=== PATIENT | female | born 1995 | race Caucasian/White ===

== ENCOUNTER → 2020-12-19 | Outpatient (REF) | payer OTHER ==
[2020-12-19 17:15] LABS: HEMATOCRIT 41.3 % (36.0-47.0); HEMOGLOBIN 13.5 g/dl (12.0-15.5); MEAN CORPUSCULAR HEMOGLOBIN 29.6 pg (27.0-33.0); MEAN CORPUSCULAR HGB CONC 32.7 g/dl (32.0-36.5); MEAN CORPUSCULAR VOLUME 90.6 fl (80.0-96.0); PLATELET COUNT, AUTOMATED 189 10^3/uL (150-450); RED BLOOD COUNT 4.56 10^6/uL (4.00-5.40); WHITE BLOOD COUNT 8.4 10^3/uL (4.0-10.0)
[2020-12-19 17:34] LABS: HCG, SERUM QUANTITATIVE 35647 MIU/ML
[2020-12-19 17:58] LABS: HEPATITIS C VIRUS ABY INDEX < 0.0 INDEX (<0.8)
[2020-12-19 17:59] LABS: HIV 1&2 SCREEN CENTAUR NEGATIVE (NEGATIVE)
== END ==
LOC: M LAB REF 16:33
PROVIDERS: ATTEND Obstetrics & Gynecology
DX: Z32.01 Encounter for pregnancy test, result positive (principal); O36.80X0 Pregnancy with inconclusive fetal viability, not applicable or unspecified

== ENCOUNTER → 2021-01-02 | Outpatient (CLI) | payer OTHER ==
--- NOTE | 2021-01-02 08:06 | REP ---
INDICATION: DATING AND VIABILITY COMPARISON: None. TECHNIQUE: Transabdominal 1st trimester obstetrical ultrasound with color Doppler evaluation. FINDINGS: Single live early intrauterine is appreciated. pole identified. [place]uffs-rump length of 4.5 cm corresponds to 11 weeks 2 days gestational age with estimated date of delivery 07/22/2021. heart rate equals 170 beats per minute. Placenta identified posteriorly with placenta previa likely to resolve as progresses. IMPRESSION: Single live early intrauterine at 11 weeks 2 days gestational age. Complete anatomical assessment should be performed and 19-20 weeks. <Electronically signed by Scooter Josue > 01/02/21 0802
== END ==
LOC: M WHC 06:56 → EDUNIT# 07:00
PROVIDERS: ATTEND Obstetrics & Gynecology
DX: Z36.87 Encounter for antenatal screening for uncertain dates (principal); O36.80X0 Pregnancy with inconclusive fetal viability, not applicable or unspecified; Z3A.11 11 weeks gestation of pregnancy

== ENCOUNTER → 2021-03-02 | Outpatient (CLI) | payer OTHER ==
--- NOTE | 2021-03-02 09:21 | REP ---
INDICATION: ANATOMY COMPARISON: 01/02/2021 TECHNIQUE: Transabdominal obstetrical ultrasound with color Doppler evaluation. FINDINGS: Examination demonstrates a single live intrauterine in cephalic presentation. motion is identified by technologist. Placenta is noted anterior/fundal and grade 0 without evidence for placenta previa or abruption. Amniotic fluid volume is normal. Cervix measures 3.9 cm in length and appears closed.. Selected gestational age: 19 weeks 6 days with TIKI 07/21/2021. Gestational age by current measurements 19 weeks 3 days with TIKI 07/24/2021. FHR equals 156 beats per minute. Estimated weight 299 grams (30thpercentile). Anatomical assessment demonstrates normal structures including cranium, choroid plexus, cavum, cerebellum/posterior fossa, facial features, lungs, four-chamber heart/ventricular outflow tracts, diaphragm, stomach, cord insertion/three-vessel cord, kidneys/bladder, spine, and extremities. IMPRESSION: Single live intrauterine in cephalic presentation demonstrating appropriate estimated weight. Anatomical assessment is complete and normal. <Electronically signed by Scooter Josue > 03/02/21 [id number]
== END ==
LOC: M WHC 08:04
PROVIDERS: ATTEND Advanced Practice Midwife
DX: O34.211 Maternal care for low transverse scar from previous cesarean delivery (principal); Z3A.19 19 weeks gestation of pregnancy

== ENCOUNTER → 2021-03-14 | Outpatient (REF) | payer OTHER ==
[2021-03-14 14:49] LABS: APPEARANCE, URINE CLEAR (CLEAR); BACTERIA, URINE AUTO 1+ (NEGATIVE); BILIRUBIN, URINE AUTO NEGATIVE (NEGATIVE); BLOOD, URINE BLOOD NEGATIVE (NEGATIVE); COLOR, URINE STRAW (YELLOW); GLUCOSE, URINE (UA) AUTO NEGATIVE (NEGATIVE); KETONE, URINE AUTO NEGATIVE (NEGATIVE); LEUKOCYTE ESTERASE, URINE AUTO NEGATIVE (NEGATIVE); NITRITE, URINE AUTO NEGATIVE (NEGATIVE); PROTEIN, URINE AUTO NEGATIVE (NEGATIVE); RBC, URINE AUTO 0 /HPF (0-3); SPECIFIC GRAVITY URINE AUTO 1.005 (1.002-1.035); SQUAMOUS EPITHELIAL CELL UR AU 0 /HPF (0-6); UROBILINOGEN, URINE AUTO 0.2 mg/dL (0.0-2.0); WBC, URINE AUTO 0 /HPF (0-3)
== END ==
LOC: M SFHCWAGY 13:24
PROVIDERS: ATTEND Advanced Practice Midwife
DX: O26.899 Other specified pregnancy related conditions, unspecified trimester (principal); R10.9 Unspecified abdominal pain
CPT/HCPCS: 81001; 81002; 87086; G0463

== ENCOUNTER → 2021-04-05 | Outpatient (CLI) | payer OTHER ==
[2021-04-05 16:40] LABS: HEMOGLOBIN 11.9 g/dl (12.0-15.5); MEAN CORPUSCULAR HEMOGLOBIN 30.5 pg (27.0-33.0); MEAN CORPUSCULAR HGB CONC 33.1 g/dl (32.0-36.5); MEAN CORPUSCULAR VOLUME 92.3 fl (80.0-96.0); PLATELET COUNT, AUTOMATED 171 10^3/uL (150-450); WHITE BLOOD COUNT 10.3 10^3/uL (4.0-10.0)
== END ==
LOC: M PLALAB 14:28
PROVIDERS: ATTEND Obstetrics & Gynecology
DX: O34.211 Maternal care for low transverse scar from previous cesarean delivery (principal); Z3A.00 Weeks of gestation of pregnancy not specified
CPT/HCPCS: 36415; 82950; 85027; 86850; 86900; 86901; 87210; G0463

== ENCOUNTER → 2021-05-09 | Outpatient (REF) | payer OTHER | LOC: M SFHCWAGY 13:07 | PROVIDERS: ATTEND Advanced Practice Midwife | DX: O34.211 Maternal care for low transverse scar from previous cesarean delivery (principal) ==

== ENCOUNTER → 2021-06-22 | Outpatient (REF) | payer OTHER ==
[~2021-06-22] MED LIST: TUMS500C PO
== END ==
LOC: M SFHCWAGY 16:58
PROVIDERS: ATTEND Advanced Practice Midwife
DX: Z36.85 Encounter for antenatal screening for Streptococcus B (principal)
CPT/HCPCS: 87081; G0463

== ENCOUNTER 2021-06-25 08:13 | Outpatient (CLI) | payer OTHER ==
[~2021-06-25] VITALS: Ht 157.5 cm; Wt 92.6 kg
[2021-06-25] MEDS ORDERED: TUMS500C PO (08:31)
[2021-06-25 08:35] VITALS: BP 131/68
[2021-06-25] MEDS ORDERED: HOME MED LIST COMPLETE! XX SCH (08:35)
[2021-06-25 09:19] VITALS: BP 134/66
--- NOTE | 2021-06-25 09:37 | IPNPDOC ---
Text Note Date of Service The patient was seen on 06/25/21. S: Lisha is a at 36.2 weeks gestation with an TIKI of 07/21/21 who presented to triage with complaints of decreased movement and abdominal pain throughout the night. complicated by history of section. Patient states her abdomen felt rock hard and pain was worsened when getting out of bed or standing from a sitting position. She denies any current contractions, loss of fluid or bright red vaginal bleeding. Patient does confirm feeling movement during exam/ultrasound. O: Vital signs: see below. Bedside ultrasound with IGNACIO of 16.86cm with breech presentation. Fetus active and moving during ultrasound. FHR 160's with moderate variability. Onycha with occasional (only 2 noted) contractions. Exam: General-alert and oriented x 2, NAD Resp-breathing comfortably on room air, no accessory muscles used Abdomen-soft, gravid uterus, leopolds confirms breech presentation A: Decreased Movement IUP at 36.2 weeks gestation Reactive NST Breech Presentation P: Discharge to home. Signs of labor discussed Reviewed access to care, kick counts, and danger signs to report. F/U at next appointment later this week, will reconfirm position VS,Fishbone, I+O VS, Fishbone, I+O Vital Signs Date Time Temp Pulse Resp B/P (MAP) Pulse Ox O2 Delivery O2 Flow Rate FiO2 06/25/21 08:35 98.4 88 18 131/68 (89) ELIZABETH GILL CNM Jun 25, 2021 09:37
== END 2021-06-25 09:36 | disposition home or self-care (01) ==
LOC: M LDO 08:13
PROVIDERS: ATTEND Advanced Practice Midwife
DX: O36.8130 Decreased fetal movements, third trimester, not applicable or unspecified (principal); Z3A.36 36 weeks gestation of pregnancy; O26.893 Other specified pregnancy related conditions, third trimester; R10.2 Pelvic and perineal pain; O34.219 Maternal care for unspecified type scar from previous cesarean delivery; Z88.0 Allergy status to penicillin
CPT/HCPCS: 59025; G0378; G0463

== ENCOUNTER → 2021-07-18 | Outpatient (CLI) | payer OTHER ==
[~2021-07-18] MED LIST changes: +IBUP-1022 PO; +OMEP1CAP73 PO; +OXYC-517 PO
== END ==
LOC: M LABSMTC 10:01
PROVIDERS: ATTEND Anesthesiology
DX: Z01.812 Encounter for preprocedural laboratory examination (principal); Z20.822 Contact with and (suspected) exposure to COVID-19
CPT/HCPCS: G0463; U0003

== ENCOUNTER 2021-07-22 17:50 | Inpatient (IN) | payer OTHER ==
[~2021-07-22] VITALS: Ht 157.5 cm; Wt 96.0 kg
[~2021-07-22 17:50] MED LIST changes: -IBUP-1022 PO; -OXYC-517 PO
[2021-07-22 18:07] VITALS: BP 132/92
[2021-07-22] MEDS ORDERED: HOME MED LIST COMPLETE! XX SCH (18:15)
--- OUTSIDE RECORDS SUMMARY | 2021-07-22 18:21 | CCD ---
Author Author [facility] Address Unknown Phone Unavailable Care Team Providers Care Data Transcriber Name Role Phone Martina, Rios PA Unavailable Unavailable Martina, Rios PA Unavailable Unavailable Martina, Rios PA Unavailable Unavailable Martina, Rios PA Unavailable Unavailable Martina, Rios PA Unavailable Unavailable Martina, Rios PA Unavailable Unavailable Martina, Rios PA Unavailable Unavailable Martina, Rios PA Unavailable Unavailable Martina, Rios PA Unavailable Unavailable Martina, Rios PA Unavailable Unavailable Maritna, Rios PA Unavailable Unavailable Martina, Rios PA Unavailable Unavailable Martina, Rios PA Unavailable Unavailable Martina, Rios PA Unavailable Unavailable Martina, Rios PA Unavailable Unavailable Martina, Rios PA Unavailable Unavailable Martina, Rios PA Unavailable Unavailable Martina, Rios PA Unavailable Unavailable Martina, Rios PA Unavailable Unavailable Martina, Rios PA Unavailable Unavailable Martina, Rios PA Unavailable Unavailable Martina, Rios PA Unavailable Unavailable Martina, Rios PA Unavailable Unavailable Martina, Rios PA Unavailable Unavailable Martina, Rios PA Unavailable Unavailable Martina, Rios PA Unavailable Unavailable Martina, Rios PA Unavailable Unavailable Martina, Rios PA Unavailable Unavailable Martina, Rios PA Unavailable Unavailable Martina, Rios PA Unavailable Unavailable Martina, Rios PA Unavailable Unavailable Martina, Rios PA Unavailable Unavailable Martina, Rios PA Unavailable Unavailable Martina, Rios PA Unavailable Unavailable Martina, Rios PA Unavailable Unavailable Martina, Rios PA Unavailable Unavailable Martina, Rios PA Unavailable Unavailable Martina, Rios PA Unavailable Unavailable Martina, Rios PA Unavailable Unavailable Martina, Rios PA Unavailable Unavailable Martina, Rios PA Unavailable Unavailable Martina, Rios PA Unavailable Unavailable Martina, Rios PA Unavailable Unavailable Martina, Rios PA Unavailable Unavailable Martina, Rios PA Unavailable Unavailable Martina, Rios PA Unavailable Unavailable Martina, Rios PA Unavailable Unavailable Martina, Rios PA Unavailable Unavailable Martina, Rios PA Unavailable Unavailable Martina, Rios PA Unavailable Unavailable Martina, Rios PA Unavailable Unavailable Martina, Rios PA Unavailable Unavailable Martina, Rios PA Unavailable Unavailable Martina, Rios PA Unavailable Unavailable ANTECOL, Davy FONSECA MD Unavailable Unavailable ANTECOL, Davy FONSECA MD Unavailable Unavailable ANTECOL, Davy FONSECA MD Unavailable Unavailable ANTECOL, Davy FONSECA MD Unavailable Unavailable ANTECOL, Davy FONSECA MD Unavailable Unavailable ANTECOL, Davy FONSECA MD Unavailable Unavailable ANTECOL, Davy FONSECA MD Unavailable Unavailable ANTECOL, Davy FONSECA MD Unavailable Unavailable ANTECOL, Davy FONSECA MD Unavailable Unavailable ANTECOL, Davy FONSECA MD Unavailable Unavailable ANTECOL, Davy FONSECA MD Unavailable Unavailable ANTECOL, Davy FONSECA MD Unavailable Unavailable ANTECOL, Davy FONSECA MD Unavailable Unavailable ANTECOL, Davy FONSECA MD Unavailable Unavailable ANTECOL, Davy FONSECA MD Unavailable Unavailable ANTECOL, Davy FONSECA MD Unavailable Unavailable ANTECOL, Davy FONSECA MD Unavailable Unavailable ANTECOL, Davy FONSECA MD Unavailable Unavailable ANTECOL, Davy FONSECA MD Unavailable Unavailable ANTECOL, Davy FONSECA MD Unavailable Unavailable ANTECOL, Davy FONSECA MD Unavailable Unavailable ANTECOL, Davy FONSECA MD Unavailable Unavailable ANTECOL, Davy FONSECA MD Unavailable Unavailable ANTECOL, Davy FONSECA MD Unavailable Unavailable ANTECOL, Davy FONSECA MD Unavailable Unavailable ANTECOL, Davy FONSECA MD Unavailable Unavailable ANTECOL, Davy FONSECA MD Unavailable Unavailable ANTECOL, Davy FONSECA MD Unavailable Unavailable ANTECOL, Davy FONSECA MD Unavailable Unavailable ANTECOL, Davy FONSECA MD Unavailable Unavailable ANTECOL, Davy FONSECA MD Unavailable Unavailable ANTECOL, Davy FONSECA MD Unavailable Unavailable ANTECOL, Davy FONSECA MD Unavailable Unavailable ANTECOL, Davy FONSECA MD Unavailable Unavailable ANTECOL, Davy FONSECA MD Unavailable Unavailable ANTECOL, Davy FONSECA MD Unavailable Unavailable ANTECOL, Davy FONSECA MD Unavailable Unavailable ANTECOL, Davy FONSECA MD Unavailable Unavailable ANTECOL, Davy FONSECA MD Unavailable Unavailable ANTECOL, Davy FONSECA MD Unavailable Unavailable ANTECOL, Davy FONSECA MD Unavailable Unavailable ANTECOL, Davy FONSECA MD Unavailable Unavailable ANTECOL, Davy FONSECA MD Unavailable Unavailable ANTECOL, Davy FONSECA MD Unavailable Unavailable ANTECOL, Davy FONSECA MD Unavailable Unavailable ANTECOL, Davy FONSECA MD Unavailable Unavailable ANTECOL, Davy FONSECA MD Unavailable Unavailable ANTECOL, Davy FONSECA MD Unavailable Unavailable ANTECOLDavy MD Unavailable Unavailable ANTECOLDavy MD Unavailable Unavailable ANTECOLDavy MD Unavailable Unavailable ANTECOLDavy MD Unavailable Unavailable ANTECOLDavy MD Unavailable Unavailable ANTECOLDavy MD Unavailable Unavailable Re-disclosure Warning The records that you are about to access may contain information from federally-assisted alcohol or drug abuse programs. If such information is present, then the following federally mandated warning applies: This information has been disclosed to you from records protected by federal confidentiality rules (42 CFR part 2). The federal rules prohibit you from making any further disclosure of this information unless further disclosure is expressly permitted by the written consent of the person to whom it pertains or as otherwise permitted by 42 CFR part 2. A general authorization for the release of medical or other information is NOT sufficient for this purpose. The Federal rules restrict any use of the information to criminally investigate or prosecute any alcohol or drug abuse patient.The records that you are about to access may contain highly sensitive health information, the redisclosure of which is protected by Article 27-F of the [facility] Public Health law. If you continue you may have access to information: Regarding HIV / AIDS; Provided by facilities licensed or operated by the [facility] Office of Mental Health; or Provided by the [facility] Office for People With Developmental Disabilities. If such information is present, then the following [facility] mandated warning applies: This information has been disclosed to you from confidential records which are protected by state law. State law prohibits you from making any further disclosure of this information without the specific written consent of the person to whom it pertains, or as otherwise permitted by law. Any unauthorized further disclosure in violation of state law may result in a fine or prison sentence or both. A general authorization for the release of medical or other information is NOT sufficient authorization for further disc losure. Encounters Encounter Providers Location Date Indications Data Source(s ) Unknown [address] [facility] [place] [address] 07/19/2021 12:00:00 AM EDT eCW1 ([facility]) Unknown [address] [facility] [address] 07/13/2021 12:00:00 AM EDT eCW1 ([facility]) (WC ESTOB) [facility] [address] [place] [address] 06/29/2021 12:00:00 AM EDT eCW1 ([facility]) (WC ESTOB) [facility] [address] [place] [address] 06/22/2021 12:00:00 AM EDT eCW1 ([facility]) Outpatient Attender: MARIAN SOLARES MD Main Office 06/18/2021 10:00:00 AM EDT MEDENT ([facility]) (WC ESTOB) [facility] [address] [place] [address] 06/08/2021 12:00:00 AM EDT eCW1 ([facility]) Unknown [address] [facility] [address] 05/30/2021 12:00:00 AM EDT eCW1 ([facility]) (WC ESTOB) [facility] [address] [place] [address] 05/25/2021 12:00:00 AM EDT eCW1 ([facility]) Unknown [address] [facility] [address] 05/10/2021 12:00:00 AM EDT eCW1 ([facility]) (WC ESTOB) [facility] [address] [place] [address] 05/08/2021 12:00:00 AM EDT eCW1 ([facility]) Outpatient Attender: Rios [facility]/07/2021 01:40:00 PM EDT MEDENT ([facility]) (WC ESTOB) [facility] [address] [place] [address] 04/05/2021 12:00:00 AM EDT eCW1 ([facility]) (WC ESTOB) [facility] [address] [place] [address] 03/29/2021 12:00:00 AM EDT eCW1 ([facility]) ( ESTOB) [facility] Est OB [address] [place] [address] 03/14/2021 12:00:00 AM EDT eCW1 ([facility]) ( ESTOB) [facility] Est OB [address] [place] [address] 03/06/2021 12:00:00 AM EDT eCW1 ([facility]) ( NEWOB) [facility] New OB Visit [address] [place] [address] 02/07/2021 12:00:00 AM EDT eCW1 ([facility]) Immunizations Vaccine Date Status Description Data Source(s) DTaP 05/25/2021 03:33:00 PM EDT completed e CW1 ([facility]) DTaP 05/25/2021 03:33:00 PM EDT completed e CW1 ([facility]) DTaP 05/25/2021 03:33:00 PM EDT completed e CW1 ([facility]) DTaP 05/25/2021 03:33:00 PM EDT completed e CW1 ([facility]) DTaP 05/25/2021 03:33:00 PM EDT completed e CW1 ([facility]) DTaP 05/25/2021 03:33:00 PM EDT completed e CW1 ([facility]) DTaP 05/25/2021 03:33:00 PM EDT completed e CW1 ([facility]) COVID-19 VACC, MRNA(PFIZER)/PF 05/08/2021 12:00:00 AM EDT completed [facility] COVID-19 VACCINE Pfizer 05/08/2021 12:00:00 AM EDT completed [facility] Vaccine Series Complete: YESThis Data wa s Submitted to [facility]. COVID-19 VACCINE Pfizer 04/13/2021 12:00:00 AM EDT completed [facility] Vaccine Series Complete: NOThis Data was Submitted to [facility]. COVID-19 VACC, MRNA(PFIZER)/PF 04/13/2021 12:00:00 AM EDT completed [facility] Medications Medication Brand Name Start Date Product Form Dose Route Admi nistrative Instructions Pharmacy Instructions Status Indications Reaction Description Data Source(s) Calcium Carbonate 500 MG Chewable Tablet [Tums] Tums 06/17/2021 12:00:00 AM EDT ORAL active MEDENT ( [facility]) Omeprazole 20 MG Delayed Release Oral Capsule Omeprazole 06/17/2021 12:00:00 AM EDT ORAL active MEDENT ([facility]) No Active Medications 04/24/2021 12:00:00 AM EDT completed MEDENT ([facility]) Fluconazole 150 MG Oral Tablet [Diflucan] Diflucan 150 MG Di flucan 150 MG 04/05/2021 12:00:00 AM EDT 1.0 {tablet} suspended Diflucan 150 MG eCW1 ([facility]) Fluconazole 150 MG Oral Tablet [Diflucan] Diflucan 150 MG Di flucan 150 MG 04/05/2021 12:00:00 AM EDT 1.0 {tablet} suspended Diflucan 150 MG eCW1 ([facility]) Fluconazole 150 MG Oral Tablet [Diflucan] Diflucan 150 MG Di flucan 150 MG 04/05/2021 12:00:00 AM EDT 1.0 {tablet} suspended Diflucan 150 MG eCW1 ([facility]) Fluconazole 150 MG Oral Tablet [Diflucan] Diflucan 150 MG Di flucan 150 MG 04/05/2021 12:00:00 AM EDT 1.0 {tablet} suspended Diflucan 150 MG eCW1 ([facility]) Fluconazole 150 MG Oral Tablet [Diflucan] Diflucan 150 MG Di flucan 150 MG 04/05/2021 12:00:00 AM EDT 1.0 {tablet} suspended Diflucan 150 MG eCW1 ([facility]) Fluconazole 150 MG Oral Tablet [Diflucan] Diflucan 150 MG Di flucan 150 MG 04/05/2021 12:00:00 AM EDT 1.0 {tablet} suspended Diflucan 150 MG eCW1 ([facility]) Fluconazole 150 MG Oral Tablet [Diflucan] Diflucan 150 MG Di flucan 150 MG 04/05/2021 12:00:00 AM EDT 1.0 {tablet} suspended Diflucan 150 MG eCW1 ([facility]) Fluconazole 150 MG Oral Tablet [Diflucan] Diflucan 150 MG Di flucan 150 MG 04/05/2021 12:00:00 AM EDT 1.0 {tablet} suspended Diflucan 150 MG eCW1 ([facility]) Fluconazole 150 MG Oral Tablet [Diflucan] Diflucan 150 MG Di flucan 150 MG 04/05/2021 12:00:00 AM EDT 1.0 {tablet} suspended Diflucan 150 MG eCW1 ([facility]) Fluconazole 150 MG Oral Tablet [Diflucan] Diflucan 150 MG Di flucan 150 MG 04/05/2021 12:00:00 AM EDT 1.0 {tablet} active Diflucan 150 MG eCW1 ([facility]) Insurance Providers Payer name Policy type / Coverage type Policy ID Covered republican ID Covered republican's relationship to clark Policy Clark Plan Information [facility] [id number] [facility] [id number] [facility] [id number] [facility] [id number] [facility] [id number] [facility] [id number] Problems, Conditions, and Diagnoses Code Display Name Description Problem Type Effective Dates Data Source(s) R00.2 Palpitations Palpitations Problem 06/18/2021 12:00:00 A M [facility] R06.00 Difficulty breathing Difficulty breathing Problem 06/18/2021 12:00:00 AM EDT [facility] Z34.80 care Supervision of other normal P roblem 02/07/2021 12:00:00 AM EDT eCW1 ([facility]) Surgeries/Procedures Procedure Description Date Indications Data Source(s) ECG ROUTINE ECG W/LEAST 12 LDS W/I&R 06/18/2021 12:00: 00 AM EDT [facility] OFFICE OUTPATIENT NEW 45 MINUTES 06/18/2021 12:00:00 A M EDT [facility] NONSTRESS TEST 05/08/2021 12:00:00 AM EDT eCW1 ([facility]) OFFICE OUTPATIENT NEW 20 MINUTES 05/07/2021 12:00:00 A M EDT MEDENT ([facility]) Results ID Date Data Source [id number] 07/18/2021 09:55:00 AM EDT MEDENT ([facility]) Name Value Range Interpretation Code Description Data Marcia rce(s) Supporting Document(s) Coronavirus 2019 Nasopharygeal Laboratory test result MEDENT ([facility]) ASSAY INFORMATION: Real Time RT-PCR NOTE: The COVID-19 assay has been cleared by the U.S. Food and Drug Administration under the Emergency Use Authorization (EUA). [facility] and [facility] are designated as high complexity laboratories by the Clinical Laboratory Improvement Amendments of 1988(CLIA) and are qualified to perform this test. Not Detected ID Date Data Source [id number] 04/05/2021 08:31:00 AM EDT MEDENT ([facility]) Name Value Range Interpretation Code Description Data Marcia rce(s) Supporting Document(s) White Blood Count 10.3 4.0-10.0 MEDENT ([facility] Red Blood Count 3.90 4.00-5.40 MED[facility] ([facility]) Platelets 171 150-450 MED[facility] ([facility] Hemoglobin 11.9 MED[facility] ([facility]) Hematocrit 36.0 MED[facility] ([facility]) Procedure Social History Code Duration Value Status Description Data Source(s ) Smoking 07/13/2021 12:00:00 AM EDT Never Smoker completed Never S moker eCW1 ([facility]) Smoking 07/13/2021 12:00:00 AM EDT Never Smoker completed Never S moker eCW1 ([facility]) Smoking 07/09/2021 12:00:00 AM EDT Never Smoker completed Never S moker eCW1 ([facility]) Smoking 06/26/2021 12:00:00 AM EDT Never Smoker completed Never S moker eCW1 ([facility]) Smoking 06/22/2021 12:00:00 AM EDT Never Smoker completed Never S moker eCW1 ([facility]) Smoking 06/18/2021 12:00:00 AM EDT Patient has never smoked co mpleted Patient has never smoked MEDENT ([facility]) Smoking 06/05/2021 12:00:00 AM EDT Never Smoker completed Never S moker eCW1 ([facility]) Smoking 05/16/2021 12:00:00 AM EDT Never Smoker completed Never S moker eCW1 ([facility]) Smoking 05/08/2021 12:00:00 AM EDT Never Smoker completed Never S moker eCW1 ([facility]) Smoking 05/08/2021 12:00:00 AM EDT Never Smoker completed Never S moker eCW1 ([facility]) Smoking 05/07/2021 12:00:00 AM EDT Patient has never smoked co mpleted Patient has never smoked MEDENT ([facility]) Smoking 04/05/2021 12:00:00 AM EDT Never Smoker completed Never S moker eCW1 ([facility]) Smoking 03/14/2021 12:00:00 AM EDT Never Smoker completed Never S moker eCW1 ([facility]) Smoking 03/14/2021 12:00:00 AM EDT Never Smoker completed Never S moker eCW1 ([facility]) Smoking 03/14/2021 12:00:00 AM EDT Never Smoker completed Never S moker eCW1 ([facility]) Smoking 02/07/2021 12:00:00 AM EDT Never Smoker completed Never S moker eCW1 ([facility]) Vital Signs ID Date Data Source UNK Name Value Range Interpretation Code Description Data Source(s) Body weight 204.8 [lb_av] 204.8 [lb_av] eCW1 ([facility]) Body weight 92.9 kg 92.9 kg eCW1 ([facility]) Body height 62 [in_i] 62 [in_i] eCW1 ([facility]) Body mass index (BMI) [Ratio] 37.458 kg/m2 37.4 58 kg/m2 eCW1 ([facility]) Systolic blood pressure 104 mm[Hg] 104 mm[Hg] e CW1 ([facility]) Diastolic blood pressure 80 mm[Hg] 80 mm[Hg] eCW1 ([facility]) Body weight 203.0 [lb_av] 203.0 [lb_av] eCW1 ([facility]) Body weight 92.08 kg 92.08 kg eCW1 ([facility]) Body height 62 [in_i] 62 [in_i] eCW1 ([facility]) Body mass index (BMI) [Ratio] 37.129 kg/m2 37.1 29 kg/m2 eCW1 ([facility]) Systolic blood pressure 118 mm[Hg] 118 mm[Hg] e CW1 ([facility]) Diastolic blood pressure 82 mm[Hg] 82 mm[Hg] eCW1 ([facility]) Body mass index (BMI) [Ratio] 36.4 kg/m2 36.4 k g/m2 MEDENT ([facility]) Body weight 199.00 [lb_av] 199.00 [lb_av] MEDEN T ([facility]) 35 weeks and 2 days Body height 62 [in_i] 62 [in_i] MEDENT ([facility]) 5'2" Heart rate 95 /min 95 /min MEDENT ([facility]) Systolic blood pressure--sitting 94 mm[Hg] 94 mm[Hg] MEDENT ([facility]) Omron large cuff, Ra Diastolic blood pressure--sitting 77 mm[Hg] 77 mm[Hg] MEDENT ([facility]) Omron large cuff, Ra Body weight 196 [lb_av] 196 [lb_av] eCW1 ([facility]) Body height 62 [in_i] 62 [in_i] eCW1 ([facility]) Body mass index (BMI) [Ratio] 35.849 kg/m2 35.8 49 kg/m2 eCW1 ([facility]) Systolic blood pressure 122 mm[Hg] 122 mm[Hg] e CW1 ([facility]) Diastolic blood pressure 76 mm[Hg] 76 mm[Hg] eCW1 ([facility]) Body weight 196 [lb_av] 196 [lb_av] eCW1 ([facility]) Body height 62 [in_i] 62 [in_i] eCW1 ([facility]) Body mass index (BMI) [Ratio] 35.849 kg/m2 35.8 49 kg/m2 eCW1 ([facility]) Systolic blood pressure 110 mm[Hg] 110 mm[Hg] e CW1 ([facility]) Diastolic blood pressure 78 mm[Hg] 78 mm[Hg] eCW1 ([facility]) Body weight 190.2 [lb_av] 190.2 [lb_av] eCW1 ([facility]) Body weight 86.27 kg 86.27 kg eCW1 ([facility]) Body height 62 [in_i] 62 [in_i] eCW1 ([facility]) Body mass index (BMI) [Ratio] 34.788 kg/m2 34.7 88 kg/m2 eCW1 ([facility]) Systolic blood pressure 110 mm[Hg] 110 mm[Hg] e CW1 ([facility]) Diastolic blood pressure 70 mm[Hg] 70 mm[Hg] eCW1 ([facility]) Systolic blood pressure 118 mm[Hg] 118 mm[Hg] M EDENT ([facility]) Diastolic blood pressure 68 mm[Hg] 68 mm[Hg] MEDENT ([facility]) Body height 65 [in_i] 65 [in_i] MEDENT ([facility]) 5'5" Body weight 192.12 [lb_av] 192.12 [lb_av] MEDEN T ([facility]) Body mass index (BMI) [Ratio] 32.0 kg/m2 32.0 k g/m2 MEDENT ([facility]) Heart rate 82 /min 82 /min MEDENT ([facility]) Respiratory rate 14 /min 14 /min MEDENT ( [facility]) Body temperature 98.9 [degF] 98.9 [degF] MEDENT ([facility]) Oxygen saturation in Arterial blood by Pulse oximetry 99 % 99 % MEDENT ([facility]) [place] body weight 125 [lb_av] 125 [lb_av] MEDLIYAH T ([facility]) Body weight 183.4 [lb_av] 183.4 [lb_av] eCW1 ([facility]) Body weight 83.19 kg 83.19 kg W1 ([facility]) Body height 62 [in_i] 62 [in_i] eCW1 ([facility]) Body mass index (BMI) [Ratio] 33.544 kg/m2 33.5 44 kg/m2 [facility] ([facility]) Systolic blood pressure 104 mm[Hg] 104 mm[Hg] e CW1 ([facility]) Diastolic blood pressure 72 mm[Hg] 72 mm[Hg] eCW1 ([facility]) Body weight 176.2 [lb_av] 176.2 [lb_av] eCW1 ([facility]) Body weight 79.92 kg 79.92 kg eCW1 ([facility]) Body height 62 [in_i] 62 [in_i] eCW1 ([facility]) Body mass index (BMI) [Ratio] 32.227 kg/m2 32.2 27 kg/m2 eCW1 ([facility]) Systolic blood pressure 108 mm[Hg] 108 mm[Hg] e CW1 ([facility]) Diastolic blood pressure 76 mm[Hg] 76 mm[Hg] eCW1 ([facility]) Body mass index (BMI) [Ratio] 31.569 kg/m2 31.5 69 kg/m2 W1 ([facility]) Body height 62 [in_i] 62 [in_i] eCW1 ([facility]) Body weight 172.6 [lb_av] 172.6 [lb_av] eCW1 ([facility]) Diastolic blood pressure 70 mm[Hg] 70 mm[Hg] eCW1 ([facility]) Systolic blood pressure 104 mm[Hg] 104 mm[Hg] e CW1 ([facility]) Body weight 171 [lb_av] 171 [lb_av] W1 ([facility]) Systolic blood pressure 102 mm[Hg] 102 mm[Hg] e CW1 ([facility]) Diastolic blood pressure 68 mm[Hg] 68 mm[Hg] W1 ([facility]) Body weight 77.56 kg 77.56 kg [facility] ([facility]) Body height 62 [in_i] 62 [in_i] [facility] ([facility]) Body mass index (BMI) [Ratio] 31.276 kg/m2 31.2 76 kg/m2 [facility] ([facility]) Patient Treatment Plan of Care Planned Activity Planned Date Details Description Data Source (s) Fluconazole 150 MG Oral Tablet [Diflucan] 04/05/2021 12:00:00 AM ED T [facility] ([facility])
--- OUTSIDE RECORDS SUMMARY | 2021-07-22 18:21 | CCD | Continuity of Care Document ---
Author Author Lisha SOLARES MD Organization Unknown Address [address] [facility], [place] [address] Phone [phone] Care Team Providers Care Developer Relations Manager Name Role Phone ElaineirisKendra CNM MSN AUTM [phone] Nasra Johnson DO AUTM [phone] Problems Active Problems Provider Date Difficulty breathing Alex Solares MD Onset: 06/18/2021 Palpitations Alex Solares MD Onset: 06/18/2021 Social History Type Date Description Comments Sex Unknown ETOH Use Does not consume alcohol Tobacco Use Start: Unknown Patient has never smoked Smoking Status Reviewed: 06/18/21 Patient has never smoked Exercise Type/Frequency Walks daily Exercise Limitations Palpitations Exercise Limitations Other advanced pr egnancy Allergies, Adverse Reactions, Alerts Active Allergies Criticality Reaction | Severity Comments Date Penicillins Unable to assess criticality rash and dif ficulty breathing 06/17/2021 Medications Active Medications SIG Qnty Indications Ordering Provide r Date Omeprazole 20mg Capsules DR 1 by mouth every day Nasra Johnson DO 2020 Tums 500mg Chewtabs 1 tablet by mouth 4 times a day when necessary heartburn Unknown 06/17/2021 Immunizations Description No Information Available Vital Signs Date Vital Result Comment 06/18/2021 10:05am Weight 199.00 lb 35 w eeks and 2 days Home Weight 197lb Height 62 inches 5'2" BMI (Body Mass Index) 36.4 kg/m2 Heart Rate 95 /min BP Systolic Sitting 94 mmHg Omron large cuff, Ra BP Diastolic Sitting 77 mmHg Omron large cuff, R a Results Test Acquired Date Facility Test Result H/L Range Note CBC without Differential 04/05/2021 [facility] - not inter faced (315)- - White Blood Count 10.3 High 4.0-10.0 Red Blood Count 3.90 Low 4.00-5.40 Platelets 171 150-450 Hemoglobin 11.9 Hematocrit 36.0 Procedures Date Code Description Status 06/18/2021 81965 Office/Outpatient New Moderate M DM 45-59 Minutes Completed 06/18/2021 76680 ECG 12-Lead Completed Medical Devices Description No Information Available Encounters Type Date Location Provider Dx Diagnosis Office Visit 06/18/2021 10:00a Main Office Alex Solares MD R00.2 Palpitations R06.00 Dyspnea, unspecified Assessments Date Code Description Provider 06/18/2021 R00.2 Palpitations Alex Solares MD 06/18/2021 R06.00 Dyspnea, unspecified Alex carlisle MD Plan of Treatment Future Appointment(s):* 07/05/2021 10:15 am - Holter/Event/Telemetry at Main Office * 09/10/2021 1:00 pm - ECHO at Main Office 06/18/2021 - Alex Solares MD* R00.2 Palpitations* New Xrays:* US Echocardiogram Transthoracic W Doppler And Color Flow, Ordered: 06/18/21 * New Orders:* Holter Monitor, Ordered: 06/18/21 * R06.00 Dyspnea, unspecified * All * Follow up:* Further follow-up, if any, depending upon results of cardiac testing. Functional Status Functional Condition Comment Date Status Independent with all ADL's Activ e Mental Status Description No Information Available Referrals Description No Information Available
--- OUTSIDE RECORDS SUMMARY | 2021-07-22 18:21 | CCD ---
Author Author [employer] [facility] [employer] Organization [employer] Address Unknown Phone Unavailable Care Team Providers Care Calender Inspector Name Role Phone Mitchell, Enrique Unavailable PROBLEMS Type Condition ICD9-CM Code [id number] Code Onset Dates Condition S tatus W/U Status Risk SNOMED Code Notes Problem Supervision of other normal Z34.80 Ac tive confirm [id number] ALLERGIES Allergen (clinical drug ingredient) Drug/Non Drug Allergy do cumented on EMR Reaction Allergy Type Onset Date Status Penicillin penicillin Rash Non Drug Allergy Active ENCOUNTERS from 1997 to 2021-06-12 Encounter Location Date Provider Diagnosis [facility] [address] [place] [address] [place] [address] May, Enrique Mitchell Maternal care due to low transverse uterine scar from previous delivery O34.211 and 33 weeks gestation of Z3A.33 IMMUNIZATIONS Vaccine Route Administration Date Status DTAP 0.5mL Infanrix IM Intramuscular May 25, 2021 Administere d SOCIAL HISTORY Tobacco Use: Social History Observation Description Date Details (start date - stop date) Never Smoker Sex Assigned At : Social History Observation Description Sex Assigned At Unknown Tobacco Use: Question Answer Notes Are you a: never smoker REASON FOR REFERRAL No Information VITAL SIGNS Weight 196 lbs May, Height 62 in May, BMI 35.849 kg/m2 May, Blood pressure systolic 122 mm Hg May, Blood pressure diastolic 76 mm Hg May, MEDICATIONS Medication SIG (Take, Route, Frequency, Duration) Notes Start Da te End Date Status Tums 500 MG 1 tablet Orally Once a day Not-Taking Diflucan 150 MG 1 tablet Orally once. may repeat in 7 da ys as needed for 1 days Mar, Not-Taking Omeprazole 20 MG 1 capsule 30 minutes before morning meal Orally On ce a day Active PROCEDURES No Information RESULTS No Results REASON FOR VISIT 2WK PN MEDICAL (GENERAL) HISTORY Type Description Date Surgical History c section 2017 Hospitalization History childbirth 2017 Goals Section No Information Health Concerns No Information MEDICAL EQUIPMENT No Information MENTAL STATUS No Information FUNCTIONAL STATUS No Information ASSESSMENTS Encounter Date Diagnosis Assessment Notes Treatment Notes Treatm ent Clinical Notes May, Maternal care due to low tra nsverse uterine scar from previous delivery (ICD-10 - O34.211) May, 33 weeks gestation of (ICD-10 - Z3A.33 ) PLAN OF TREATMENT Next Appt Details 2 Weeks Reason:PN Provider Name:Dary Duong, 2021-06-22 0 3:00:00 PM, [address] [place] [address], [place], [place], [address] [place] [address], [address] [place] [address] Provider Name:Sharon Luna, 2021-06-29 03:40:00 PM, [address] [place] [address], [place], [place], [address] [place] [address], Provider Name:Sharon Luna, 2021-07-06 03:40:00 PM, [address] [place] [address], [place], [address] [place] [address], Provider Name:Patti Ruiz, 2021-06-23 0 02:00:00 PM, [address] [place] [address], [place], [address] [place] [address], [address] [place] [address] Provider Name:Sharon Luna, 2021-07-13 03:40:00 PM, [address] [place] [address], [place], [address] [place] [address], Provider Name:Patti Ruiz, 1 07:30:00 AM, [address] [place] [address], [place], [address], Provider Name:Sharon Luna, 2021-07-23 07:30:00 AM, [address] [place] [address], , [place], [address], Provider Name:Patti Ruiz, 2021-07-23 5 09:00:00 AM, [address] [place] [address], , [place], [address], Provider Name:Patti Ruiz, 2021-08-23 7 11:30:00 AM, [address] [place] [address], , [place], [address], Follow Up:2 WeeksPN Insurance Providers Payer Name Payer Address Payer Phone Insured Name Patient Relati onship to Insured Coverage Start Date Coverage End Date [place] [phone] [phone] paco james
--- OUTSIDE RECORDS SUMMARY | 2021-07-22 18:21 | CCD | Continuity of Care Document ---
Author Author Lisha SOLARES MD Organization Unknown Address [address] [facility], [place] [address] Phone [phone] Care Team Providers Care Credit Risk Analyst Name Role Phone ElaineirisKendra CNM MSN AUTM [phone] Nasra Johnson DO AUTM [phone] Problems Active Problems Provider Date Difficulty [...] 36.0 Procedures Date Code Description Status 06/18/2021 31873 Office/Outpatient New Moderate M DM 45-59 Minutes Completed 06/18/2021 43306 ECG 12-Lead Completed Medical Devices Description No [...] New Orders:* Holter Monitor, Ordered: 06/18/21 * Recommendations:* 24-hour Holter monitor Echocardiogram Doppler. * R06.00 Dyspnea, unspecified* Recommendations:* Further evaluation with an echocardiogram-Doppler. * All * Follow up:* Further follow-up, if any, depending upon results of cardiac testing. Functional Status Functional Condition Comment Date Status Independent with all ADL's Activ e Mental Status Description No Information Available Referrals Description No Information Available
--- OUTSIDE RECORDS SUMMARY | 2021-07-22 18:21 | CCD ---
Author Author [employer] [facility] Organization [employer] Address Unknown Phone Unavailable Care Team Providers Care Instrument And Electrical Technician Name Role Phone Jeremy Sharon Unavailable PROBLEMS Type Condition ICD9-CM Code [id number] Code Onset Dates Condition S tatus W/U Status Risk SNOMED Code Notes Problem Supervision of other normal Z34.80 Ac tive confirm [id number] ALLERGIES Allergen (clinical drug ingredient) Drug/Non Drug Allergy do cumented on EMR Reaction Allergy Type Onset Date Status penicillin V Penicillin Rash Drug Allergy Active ENCOUNTERS from 1997 to 2021-07-11 Encounter Location Date Provider Diagnosis [facility] [address] [place] [address] [place] [address] Jun, Sharon Luna Maternal care due to low transverse uterine scar from previous delivery O34.211 and 36 weeks gestation of Z3A.36 IMMUNIZATIONS Vaccine Route Administration Date Status DTAP 0.5mL Infanrix IM Intramuscular May 25, 2021 Administere d SOCIAL HISTORY Tobacco Use: Social History Observation Description Date Details (start date - stop date) Never Smoker Sex Assigned At : Social History Observation Description Sex Assigned At Unknown Tobacco Use: Question Answer Notes Are you a: never smoker REASON FOR REFERRAL No Information VITAL SIGNS Weight 204.8 lbs Jun, Weight-kg 92.9 kg Jun, Height 62 in Jun, BMI 37.458 kg/m2 Jun, Blood pressure systolic 104 mm Hg Jun, Blood pressure diastolic 80 mm Hg Jun, MEDICATIONS Medication SIG (Take, Route, Frequency, Duration) Notes Start Da te End Date Status Tums 500 MG 1 tablet Orally Once a day Not-Taking Omeprazole 20 MG 1 capsule 30 minutes before morning meal Orally On ce a day Active Diflucan 150 MG 1 tablet Orally once. may repeat in 7 da ys as needed for 1 days Mar, Not-Taking PROCEDURES No Information RESULTS No Results REASON FOR VISIT 1 WK PN MEDICAL (GENERAL) HISTORY Type Description Date Surgical History c section 2016 Hospitalization History childbirth 2017 Goals Section No Information Health Concerns No Information MEDICAL EQUIPMENT No Information MENTAL STATUS No Information FUNCTIONAL STATUS No Information ASSESSMENTS Encounter Date Diagnosis Assessment Notes Treatment Notes Treatm ent Clinical Notes Jun, Maternal care due to low tra nsverse uterine scar from previous delivery (ICD-10 - O34.211) Jun, 36 weeks gestation of (ICD-10 - Z3A.36 ) PLAN OF TREATMENT Next Appt Details 1 Week Reason:Pn Provider Name:Sharon Luna, 2021-07-13 03:40:00 PM, [address] [place] [address], [place], [place], [address] [place] [address], Provider Name:Patti Ruiz, 1 07:30:00 AM, [address] [place] [address], [place], [place], [address] [place] [address], Provider Name:Sharon Luna, 2021-07-23 07:30:00 AM, [address] [place] [address], [place], [address], Provider Name:Patti Ruiz, 2021-07-23 5 09:00:00 AM, [address] [place] [address], [place], [place], [address] [place] [address], Provider Name:Patti Ruiz, 2021-08-23 7 11:30:00 AM, [address] [place] [address], [place], [address], Follow Up:1 WeekPn Insurance Providers Payer Name Payer Address Payer Phone Insured Name Patient Relati onship to Insured Coverage Start Date Coverage End Date [place] [phone] paco james
--- OUTSIDE RECORDS SUMMARY | 2021-07-22 18:21 | CCD | Continuity of Care Document ---
Author Organization Unknown Address Unknown Phone Unavailable Care Team Providers Care Structural Steel Erection Supervisor Name Role Phone Kendra Russell CNM MSN AUTM Problems Description No Information Available Social History Type Date Description Comments Sex Unknown Allergies, Adverse Reactions, Alerts Description No Information Available Medications Description No Information Available Immunizations Description No Information Available Vital Signs Description No Information Available Results Test Acquired Date Facility Test Result H/L Range Note CBC without Differential 04/05/2021 [facility] - not inter faced (315)- - White Blood Count 10.3 High 4.0-10.0 Red Blood Count 3.90 Low 4.00-5.40 Platelets 171 150-450 Hemoglobin 11.9 Hematocrit 36.0 Procedures Description No Information Available Medical Devices Description No Information Available Encounters Description No Information Available Assessments Description No Information Available Plan of Treatment Future Appointment(s):* 06/18/2021 10:00 am - Alex Collazo MD at Main Office Functional Status Description No Information Available Mental Status Description No Information Available Referrals Description No Information Available
--- OUTSIDE RECORDS SUMMARY | 2021-07-22 18:21 | CCD ---
Author Author [employer] [facility] Organization [employer] [facility] Address Unknown Phone Unavailable Care Team Providers Care Compensation Business Partner Name Role Phone Hugo Lunaa Unavailable PROBLEMS Type Condition ICD9-CM Code [id number] Code Onset Dates Condition S tatus W/U Status Risk SNOMED Code Notes Problem Supervision of other normal Z34.80 Ac tive confirm [id number] ALLERGIES Allergen (clinical drug ingredient) Drug/Non Drug Allergy do cumented on EMR Reaction Allergy Type Onset Date Status penicillin V Penicillin Rash Drug Allergy Active ENCOUNTERS from 1997 to 2021-07-16 Encounter Location Date Provider Diagnosis [facility] Care [address] [place] [address] [place] [address] Jun, Sharon Luna IMMUNIZATIONS Vaccine Route Administration Date Status DTAP 0.5mL Infanrix IM Intramuscular May 25, 2021 Administere d SOCIAL HISTORY Tobacco Use: Social History Observation Description Date Details (start date - stop date) Never Smoker Sex Assigned At : Social History Observation Description Sex Assigned At Unknown Alcohol Screening: Question Answer Notes Did you have a drink containing alcohol in the past year? No Points 0 Interpretation Negative Tobacco Use: Question Answer Notes Are you a: never smoker REASON FOR REFERRAL No Information VITAL SIGNS No information MEDICATIONS Medication SIG (Take, Route, Frequency, Duration) Notes Start Da te End Date Status Omeprazole 20 MG 1 capsule 30 minutes before morning meal Orally On ce a day Active Tums 500 MG 1 tablet Orally Once a day Not-Taking Diflucan 150 MG 1 tablet Orally once. may repeat in 7 da ys as needed for 1 days Mar, Not-Taking PROCEDURES No Information RESULTS No Results REASON FOR VISIT appt MEDICAL (GENERAL) HISTORY Type Description Date Surgical History c section 2017 Hospitalization History childbirth 2017 Goals Section No Information Health Concerns No Information MEDICAL EQUIPMENT No Information MENTAL STATUS No Information FUNCTIONAL STATUS No Information ASSESSMENTS No Information PLAN OF TREATMENT Next Appt Details Provider Name:Sharon Luna, 2021-07-18 08:00:00 AM, [address] [place] [address], , [place], [address], Provider Name:Patti Ruiz, 1 07:30:00 AM, [address] [place] [address], , [place], [place], [address] [place] [address], Provider Name:Sharon Luna, 2021-07-23 07:30:00 AM, [address] [place] [address], , [place], [address], Provider Name:Patti Ruiz, 2021-07-23 5 09:00:00 AM, [address] [place] [address], , [place], [place], [address] [place] [address], Provider Name:Patti Ruiz, 2021-08-23 7 11:30:00 AM, [address] [place] [address], , [place], [place], [address] [place] [address], Insurance Providers Payer Name Payer Address Payer Phone Insured Name Patient Relati onship to Insured Coverage Start Date Coverage End Date [address] [phone] paco james
--- OUTSIDE RECORDS SUMMARY | 2021-07-22 18:21 | CCD | Continuity of Care Document ---
Author Author Lisha BHATTI Organization Unknown Address [address] [place] [address] 6 [address] [place] [address] Phone [phone] Care Team Providers Care Telephone Surveyor Name Role Phone Nasra Johnson D.O. AUTM [phone] Problems Description No Information Available Social History Type Date Description Comments Sex Unknown ETOH Use Currently consumes alcohol Tobacco Use Start: Unknown Patient has never smoked Recreational Drug Use Denies Drug Use Smoking Status Reviewed: 05/07/21 Patient has never smoked Exercise Type/Frequency Walks daily Sun Exposure Uses sunscreen Seat Belt/Car Seat Always uses seat belt Allergies, Adverse Reactions, Alerts Active Allergies Criticality Reaction | Severity Comments Date Penicillin Unable to assess criticality 04/24/2021 Medications Active Medications SIG Qnty Indications Ordering Provide r Date Tums 500mg Chewtabs Unknown History Medications No Active Medications Unknown 11/2020 - 05/07/2021 Immunizations Description No Information Available Vital Signs Date Vital Result Comment 05/07/2021 1:49pm BP Systolic 118 mmHg BP Diastolic 68 mmHg Height 65 inches 5'5" Weight 192.12 lb BMI (Body Mass Index) 32.0 kg/m2 Heart Rate 82 /min Respiratory Rate 14 /min Body Temperature 98.9 F O2 % BldC Oximetry 99 % [place] Body Weight 125 lb Results Description No Information Available Procedures Date Code Description Status 05/07/2021 41256 Office/Outpatient New MDM 15- 29 Minutes Completed Medical Devices Description No Information Available Encounters Type Date Location Provider Dx Diagnosis Office Visit 05/07/2021 1:40p Family Medicine [facility] RENARD Harrell Z3A.29 29 weeks gestation of pregna ncy Assessments Date Code Description Provider 05/07/2021 Z3A.29 29 weeks gestation of RENARD Harrell Plan of Treatment Future Appointment(s):* 11/12/2021 8:00 am - Nasra Johnson D.O. at [facility] 05/07/2021 - RENARD Harrell* Z3A.29 29 weeks gestation of * Comments:* Doing well, continue with the recommendations of OB. Call for any concerns. * Follow up:* [address] Bonilla for preventative. Functional Status Description No Information Available Mental Status Description No Information Available Referrals Description No Information Available
--- OUTSIDE RECORDS SUMMARY | 2021-07-22 18:21 | CCD ---
Author Author [employer] Organization [employer] Address Unknown Phone Unavailable Care Team Providers Care Subway Car Repairer Name Role Phone Patti Ruiz Unavailable PROBLEMS Type Condition ICD9-CM Code [id number] Code Onset Dates Condition S tatus W/U Status Risk SNOMED Code Notes Problem Supervision of other normal Z34.80 Ac tive confirm [id number] ALLERGIES Allergen (clinical drug ingredient) Drug/Non Drug Allergy do cumented on EMR Reaction Allergy Type Onset Date Status Penicillin penicillin Rash Non Drug Allergy Active ENCOUNTERS from 1997 to 2021-06-27 Encounter Location Date Provider Diagnosis [facility] Women[facility] Breast Care [address] [place] [address] [place] [address] May, Patti SegoviaChilo Palpitations R00.2 ; Maternal care due to low transverse uterine scar from previous delivery O34.211 ; 31 weeks gestation of Z3A.31 ; Encounter for immunization Z23 and Supervision of other normal Z34.80 IMMUNIZATIONS Vaccine Route Administration Date Status DTAP [...] BMI 35.849 kg/m2 May, Blood pressure systolic 110 mm Hg May, Blood pressure diastolic 78 mm Hg May, MEDICATIONS Medication SIG (Take, Route, Frequency, Duration) Notes Start Da te End Date Status Diflucan 150 MG 1 tablet Orally once. may repeat in 7 da ys as needed for 1 days Mar, Not-Taking Tums 500 MG 1 tablet Orally Once a day Active Omeprazole 20 MG 1 capsule 30 minutes before morning meal Orally On ce a day Active PROCEDURES No Information RESULTS No Results REASON FOR VISIT 2 WK PN MEDICAL (GENERAL) HISTORY Type Description Date Surgical History c section 2016 Hospitalization History childbirth 2016 Goals Section No Information Health Concerns No Information MEDICAL EQUIPMENT No Information MENTAL STATUS No Information FUNCTIONAL STATUS No Information ASSESSMENTS Encounter Date Diagnosis Assessment Notes Treatment Notes Treatm ent Clinical Notes May, Palpitations (ICD-10 - R00.2) May, Maternal care due to low tra nsverse uterine scar from previous delivery (ICD-10 - O34.211) May, 31 weeks gestation of (ICD-10 - Z3A.31 ) May, Encounter for immunization (ICD-10 - Z23) May, Supervision of other normal (ICD-10 - Z34.80) PLAN OF TREATMENT Treatment Notes Test Name Order Date Imm: Boostrix 0.5mL IM TDAP 2021-05-25 Next Appt Details 2 Weeks Reason:Routine Provider Name:Sharon Luna, 2021-06-29 03:40:00 PM, [address] [place] [address], [place], [address], Provider Name:Sharon Luna, 2021-07-06 03:40:00 PM, [address] [place] [address], [place], [address], Provider Name:Patti Ruiz, 2021-06-23 0 02:00:00 PM, [address] [place] [address], [place], [address], Provider Name:Sharon Luna, 2021-07-13 03:40:00 PM, [address] [place] [address], [place], [address], Provider Name:Patti Ruiz, 1 07:30:00 AM, [address] [place] [address], , [place], [address], Provider Name:Sharon Luna, 2021-07-23 07:30:00 AM, [address] [place] [address], , [place], [address], Provider Name:Patti Ruiz, 2021-07-23 5 09:00:00 AM, [address] [place] [address], , [place], [address], Provider Name:Patti Ruiz, 2021-08-23 7 11:30:00 AM, [address] [place] [address], , [place], [address], Follow Up:2 WeeksRoutine Insurance Providers Payer Name Payer Address Payer Phone Insured Name Patient Relati onship to Insured Coverage Start Date Coverage End Date [address] [phone] paco james
--- OUTSIDE RECORDS SUMMARY | 2021-07-22 18:21 | CCD ---
Author Author [facility] Organization [facility] Address Unknown Phone Unavailable Care Team Providers Care Director Industrial Museum Name Role Phone Daxa Russell Unavailable PROBLEMS Type Condition ICD9-CM Code [id number] Code Onset Dates Condition S tatus W/U Status Risk SNOMED Code Notes Problem Supervision of other normal Z34.80 Ac tive confirm [id number] ALLERGIES Allergen (clinical drug ingredient) Drug/Non Drug Allergy do cumented on EMR Reaction Allergy Type Onset Date Status Penicillin penicillin Rash Non Drug Allergy Active ENCOUNTERS from 1997 to 2021-05-09 Encounter Location Date Provider Diagnosis [facility] [address] [place] [address] [place] [address] Apr, Daxaalpa Russell Maternal care due to low transverse uterine scar from previous delivery O34.211 and 29 weeks gestation of Z3A.29 IMMUNIZATIONS No Information SOCIAL HISTORY Tobacco Use: Social History Observation Description Date Details (start date - stop date) Never Smoker Sex Assigned At : Social History Observation Description Sex Assigned At Unknown Tobacco Use: Question Answer Notes Are you a: never smoker REASON FOR REFERRAL No Information VITAL SIGNS Weight 190.2 lbs Apr, Weight-kg 86.27 kg Apr, Height 62 in Apr, BMI 34.788 kg/m2 Apr, Blood pressure systolic 110 mm Hg Apr, Blood pressure diastolic 70 mm Hg Apr, MEDICATIONS Medication SIG (Take, Route, Frequency, Duration) Notes Start Da te End Date Status Tums 500 MG 1 tablet Orally Once a day Active Diflucan 150 MG 1 tablet Orally once. may repeat in 7 da ys as needed for 1 days Mar, Not-Taking PROCEDURES from 1997 to 2021-05-09 Procedure Date Ordered Result Body Site non-stress test 2021-05-08 N/A RESULTS No Results REASON FOR VISIT 4 wk pn MEDICAL (GENERAL) HISTORY Type Description Date Surgical History c section 2016 Hospitalization History childbirth 2017 Goals Section No Information Health Concerns No Information MEDICAL EQUIPMENT No Information MENTAL STATUS No Information FUNCTIONAL STATUS No Information ASSESSMENTS Encounter Date Diagnosis Assessment Notes Treatment Notes Treatm ent Clinical Notes Apr, Maternal care due to low tra nsverse uterine scar from previous delivery (ICD-10 - O34.211) Apr, 29 weeks gestation of (ICD-10 - Z3A.29 ) PLAN OF TREATMENT Treatment Notes Test Name Order Date URINE CULTURE 2021-05-08 Next Appt Details 2 Weeks Reason:- Routine follow up Provider Name:Patti Ruiz, 3 02:00:00 PM, [address] [place] [address], [place], [address], [address] [place] [address] Provider Name:Enrique Mitchell, 07:45:00 AM, [address] [place] [address], [place], [address], Provider Name:Dary Duong, 2021-06-22 0 3:00:00 PM, [address] [place] [address], [place], [address], Provider Name:Sharon Luna, 2021-06-29 03:40:00 PM, [address] [place] [address], [place], [address], Provider Name:Sharon Luna, 2021-07-06 03:40:00 PM, [address] [place] [address], [place], [address], Provider Name:Margo Hill, 2021-07-11 0 2:00:00 PM, [address] [place] [address], [place], [address], Provider Name:Sharon Luna, 2021-07-13 03:40:00 PM, [facility], , [place], [address], Provider Name:Margo Hill, 2021-07-27 0 7:30:00 AM, [address] [place] [address], , [place], [address], Provider Name:Dary Duong, 2021-07-27 0 7:30:00 AM, [address] [place] [address], , [place], [address], Follow Up:2 Weeks- Routine follow up Insurance Providers Payer Name Payer Address Payer Phone Insured Name Patient Relati onship to Insured Coverage Start Date Coverage End Date [address] [phone] paco james
--- OUTSIDE RECORDS SUMMARY | 2021-07-22 18:21 | CCD ---
Author Author [facility] Organization [facility] Address Unknown Phone Unavailable Care Team Providers Care Bandsaw Operator Name Role Phone Patti Ruiz Unavailable PROBLEMS Type Condition ICD9-CM Code YKR48-IN Code Onset Dates Condition S tatus W/U Status Risk SNOMED Code Notes Problem Supervision of other normal Z34.80 Ac tive confirm [id number] ALLERGIES Allergen (clinical drug ingredient) Drug/Non Drug Allergy do cumented on EMR Reaction Allergy Type Onset Date Status penicillin V Penicillin Rash Drug Allergy Active ENCOUNTERS from 1997 to 2021-07-19 Encounter Location Date Provider Diagnosis [facility] [address] [place] [address] [place] [address] Jun, Patti Ruiz IMMUNIZATIONS Vaccine Route Administration Date Status DTAP [...] Information RESULTS No Results REASON FOR VISIT 07/23/21 SURG AUTH MEDICAL (GENERAL) HISTORY Type Description Date Surgical History c section 2017 Hospitalization History childbirth 2017 Goals Section No Information Health Concerns No Information MEDICAL EQUIPMENT No Information MENTAL STATUS No Information FUNCTIONAL STATUS No Information ASSESSMENTS No Information PLAN OF TREATMENT Next Appt Details Provider Name:Patti Ruiz, 1 07:30:00 AM, [address] [place] [address], , [place], [address], Provider Name:Sharon Luna, 2021-07-23 07:30:00 AM, [address] [place] [address], , [place], [address], Provider Name:Patti Ruiz, 2021-07-23 5 09:00:00 AM, [address] [place] [address], , [place], [address], Provider Name:Patti Ruiz, 2021-08-23 7 11:30:00 AM, [address] [place] [address], , [place], [address], Insurance Providers Payer Name Payer Address Payer Phone Insured Name Patient Relati onship to Insured Coverage Start Date Coverage End Date [address] [phone] paco james
--- OUTSIDE RECORDS SUMMARY | 2021-07-22 18:21 | CCD ---
Author Author [facility] Organization [facility] Address Unknown Phone Unavailable Care Team Providers Care Embroiderer Name Role Phone Elaineiris Daxa Unavailable PROBLEMS Type Condition ICD9-CM Code [id number] Code Onset Dates Condition S tatus W/U Status Risk SNOMED Code Notes Problem Supervision of other normal Z34.80 Ac tive confirm [id number] ALLERGIES Allergen (clinical drug ingredient) Drug/Non Drug Allergy do cumented on EMR Reaction Allergy Type Onset Date Status Penicillin penicillin Rash Non Drug Allergy Active ENCOUNTERS from 1997 to 2021-05-11 Encounter Location Date Provider Diagnosis [facility] [address] [place] [address] [place] [address] Apr, Daxa Russell IMMUNIZATIONS No Information SOCIAL HISTORY Tobacco Use: [...] Information RESULTS No Results REASON FOR VISIT No Information MEDICAL (GENERAL) HISTORY Type Description Date Surgical History c section 2017 Hospitalization History childbirth 2017 Goals Section No Information Health Concerns No Information MEDICAL EQUIPMENT No Information MENTAL STATUS No Information FUNCTIONAL STATUS No Information ASSESSMENTS No Information PLAN OF TREATMENT Next Appt Details Provider Name:Patti Ruiz, 3 02:00:00 PM, [address] [place] [address], , [place], [address], Provider Name:Enrique Mitchell, 07:45:00 AM, [address] [place] [address], , [place], [address], Provider Name:Dary Duong, 2021-06-22 0 3:00:00 PM, [address] [place] [address], , [place], [address], Provider Name:Sharon Luna, 2021-06-29 03:40:00 PM, [address] [place] [address], , [place], [address], Provider Name:Sharon Luna, 2021-07-06 03:40:00 PM, [address] [place] [address], , [place], [address], Provider Name:Margo Hill, 2021-07-11 0 2:00:00 PM, [address] [place] [address], , [place], [address], Provider Name:Sharon Luna, 2021-07-13 03:40:00 PM, [address] [place] [address], , [place], [address], Provider Name:Margo Hill, 2021-07-27 0 7:30:00 AM, [address] [place] [address], , [place], [address], Provider Name:Dary Duong, 2021-07-27 0 7:30:00 AM, [address] [place] [address], , [place], [address], Insurance Providers Payer Name Payer Address Payer Phone Insured Name Patient Relati onship to Insured Coverage Start Date Coverage End Date [address] [phone] paco james
--- OUTSIDE RECORDS SUMMARY | 2021-07-22 18:21 | CCD | Continuity of Care Document ---
Author Author Lisha BHATTI Organization Unknown Address [address] [place] [address] 6 [address] [place] [address] Phone [phone] Care Team Providers Care Retail Warehouse Associate Name Role Phone Nasra Johnson D.O. AUTM [phone] Problems Description No Information Available Social History [...] F O2 % BldC Oximetry 99 % [place] Body Weight 125 lb Results Description No Information Available Procedures Description No Information Available Medical Devices Description No Information Available Encounters Description No Information Available Assessments Date Code Description Provider 05/07/2021 Z3A.29 29 weeks gestation of RENARD Harrell Plan of Treatment Future Appointment(s):* 11/12/2021 8:00 am - Nasra Johnson D.O. at [facility] 05/07/2021 - RENARD Harrell* Z3A.29 29 weeks gestation of * Comments:* Doing well, continue with the recommendations of OB. Call for any concerns. * Follow up:* [address] Bonilla for preventative. Functional Status Description No Information Available Mental Status Description No Information Available Referrals Description No Information Available
--- OUTSIDE RECORDS SUMMARY | 2021-07-22 18:21 | CCD | Continuity of Care Document ---
Author Author Lisha JOHNSON D.O. Organization Unknown Address [address] [place] [address] Phone [phone] Care Team Providers Care Vice President Of Consulting Services Name Role Phone Nasra Johnson D.O. AUTM Problems Description No Information Available Social History Type Date Description Comments Sex Unknown ETOH Use Currently consumes alcohol Tobacco Use Start: Unknown Patient has never smoked Recreational Drug Use Denies Drug Use Smoking Status Reviewed: 05/07/21 Patient has never smoked Exercise Type/Frequency Walks daily Sun Exposure Uses sunscreen Seat Belt/Car Seat Always uses seat belt Allergies and adverse reactions Active Allergies Criticality Reaction | Severity Comments [...] F O2 % BldC Oximetry 99 % [place] Body Weight 125 lb Results Test Acquired Date Facility Test Result H/L Range Note Coronavirus 2019 Nasopharygeal 07/18/2021 [facility] Outpa tient Testing (Registration) [address] [place] [address] [phone] Coronavirus 2019 Nasopharygeal ASSAY INFORMATIO <SEE N OTE> 1 1 ASSAY INFORMATION: Real Time RT-PCR NOTE: The COVID-19 assay has been cleared by the U.S. Food and Drug Administration under the Emergency Use Authorization (EUA). [employer] and [facility] are designated as high complexity laboratories by the Clinical Laboratory Improvement Amendments of 1988(CLIA) and are qualified to perform this test. Not Detected Procedures Date Code Description Status 05/07/2021 [address] Office/Outpatient New MDM 15- 29 Minutes Completed Medical Devices Description No Information Available Encounters Type Date Location Provider Dx Diagnosis Office Visit 05/07/2021 1:40p [facility] RENARD Harrell Z3A.29 29 weeks gestation of pregna ncy Assessments Date Code Description Provider 05/07/2021 Z3A.29 29 weeks gestation of RENARD Harrell Plan of Treatment Future Appointment(s):* 11/12/2021 8:00 am - Nasra Johnson D.O. at [facility] 05/07/2021 - RENARD Harrell* Z3A.29 29 weeks gestation of * Comments:* Doing well, continue with the recommendations of OB. Call for any concerns. * Follow up:* [address] Bonilla for preventative. Functional Status Description No Information Available Mental Status Description No Information Available Referrals Description No Information Available
--- OUTSIDE RECORDS SUMMARY | 2021-07-22 18:21 | CCD ---
Author Author [facility] Organization [facility] Address Unknown Phone Unavailable Care Team Providers Care Procedure Tech Name Role Phone Ad Dary Unavailable PROBLEMS Type Condition ICD9-CM Code [id number] Code Onset Dates Condition S tatus W/U Status Risk SNOMED Code Notes Problem Supervision of other normal Z34.80 Ac tive confirm [id number] ALLERGIES Allergen (clinical drug ingredient) Drug/Non Drug Allergy do cumented on EMR Reaction Allergy Type Onset Date Status Penicillin penicillin Rash Non Drug Allergy Active ENCOUNTERS from 1997 to 2021-06-22 Encounter Location Date Provider Diagnosis [facility] [address] [place] [address] [place] [address] Jun, Dary Duong Encounter for superv ision of normal in third trimester Z34.93 IMMUNIZATIONS Vaccine Route Administration Date Status DTAP 0.5mL Infanrix IM Intramuscular May 25, 2021 Administere d SOCIAL HISTORY Tobacco Use: Social History Observation Description Date Details (start date - stop date) Never Smoker Sex Assigned At : Social History Observation Description Sex Assigned At Unknown Tobacco Use: Question Answer Notes Are you a: never smoker REASON FOR REFERRAL No Information VITAL SIGNS Weight 203.0 lbs Jun, Weight-kg 92.08 kg Jun, Height 62 in Jun, BMI 37.129 kg/m2 Jun, Blood pressure systolic 118 mm Hg Jun, Blood pressure diastolic 82 mm Hg Jun, MEDICATIONS Medication SIG (Take, [...] Treatment Notes Treatm ent Clinical Notes Jun, Encounter for supervision of normal in third trimester (ICD-10 - Z34.93) PLAN OF TREATMENT Treatment Notes Test Name Order Date GROUP B STREP CULTURE 2021-06-22 Next Appt Details 1 Week Reason: Provider Name:Sharon Luna, 2021-06-29 03:40:00 PM, [address] [place] [address], [place], [place], [address] [place] [address], [address] [place] [address] Provider Name:Sharon Luna, 2021-07-06 03:40:00 PM, [address] [place] [address], [place], [address] [place] [address], [address] [place] [address] Provider Name:Patti Ruiz, 2021-06-23 0 02:00:00 PM, [address] [place] [address], [place], [address] [place] [address], Provider Name:Sharon Luna, 2021-07-13 03:40:00 PM, [address] [place] [address], [place], [address] [place] [address], Provider Name:Patti Ruiz, 1 07:30:00 AM, [address] [place] [address], [place], [address] [place] [address], [address] [place] [address] Provider Name:Sharon Luna, 2021-07-23 07:30:00 AM, [address] [place] [address], [place], [address], Provider Name:Patti Ruiz, 2021-07-23 5 09:00:00 AM, [address] [facility], , [place], [address], Provider Name:Patti Ruiz, 12-2 7 11:30:00 AM, [address] [facility], , [place], [address], Insurance Providers Payer Name Payer Address Payer Phone Insured Name Patient Relati onship to Insured Coverage Start Date Coverage End Date [address] [phone] paco james
--- OUTSIDE RECORDS SUMMARY | 2021-07-22 18:21 | CCD ---
Author Author [facility] [facility] Organization [employer] [facility] Address Unknown Phone Unavailable Care Team Providers Care Airport Operations Crew Member Name Role Phone Dary Duong Unavailable PROBLEMS Type Condition ICD9-CM Code NPR61-QI Code Onset Dates Condition S tatus W/U Status Risk SNOMED Code Notes Problem Supervision of other normal Z34.80 Ac tive confirm [id number] ALLERGIES Allergen (clinical drug ingredient) Drug/Non Drug Allergy do cumented on EMR Reaction Allergy Type Onset Date Status Penicillin penicillin Rash Non Drug Allergy Active ENCOUNTERS from 1997 to 2021-05-31 Encounter Location Date Provider Diagnosis [facility] [address] [place] [address] [place] [address] 08 May, 2021 Dary Duong IMMUNIZATIONS Vaccine Route Administration Date Status DTAP [...] Information RESULTS No Results REASON FOR VISIT concnerns MEDICAL (GENERAL) HISTORY Type Description Date Surgical History c section 2017 Hospitalization History childbirth 2017 Goals Section No Information Health Concerns No Information MEDICAL EQUIPMENT No Information MENTAL STATUS No Information FUNCTIONAL STATUS No Information ASSESSMENTS No Information PLAN OF TREATMENT Next Appt Details Provider Name:Enrique Mitchell, 07:45:00 AM, [address] [place] [address], [address] [place] [address], [place], [address], Provider Name:Dary Duong, 2021-06-22 0 3:00:00 PM, [address] [place] [address], [address] [place] [address], [place], [address], Provider Name:Sharon Luna, 2021-06-29 03:40:00 PM, [address] [place] [address], [address] [place] [address], [place], [address], Provider Name:Sharon Luna, 2021-07-06 03:40:00 PM, [address] [place] [address], [address] [place] [address], [place], [address], Provider Name:Patti Ruiz, 2021-06-23 0 02:00:00 PM, [address] [place] [address], [address] [place] [address], [place], [address], Provider Name:Sharon Luna, 2021-07-13 03:40:00 PM, [address] [place] [address], [address] [place] [address], [place], [address], Provider Name:Patti Ruiz, 1 07:30:00 AM, [address] [place] [address], [address] [place] [address], [place], [address], Provider Name:Sharon Luan, 2021-07-23 07:30:00 AM, [address] [place] [address], [address] [place] [address], [place], [address], Provider Name:Patti Ruiz, 2021-07-23 5 09:00:00 AM, [address] [place] [address], [address] [place] [address], [place], [address], Provider Name:Patti Jackelyn Ruiz, 1-12-2 7 11:30:00 AM, [address] [facility], , [place], [address], Insurance Providers Payer Name Payer Address Payer Phone Insured Name Patient Relati onship to Insured Coverage Start Date Coverage End Date [place] [phone] paco james
[2021-07-22] MEDS ORDERED: OXYTOCIN INJ 10 UNITS/ML VIAL (J2590) IM PRN (18:25)
[2021-07-22] MEDS ORDERED: METHYLERGONOVINE MALEATE 0.2 MG/ML VIAL (J2210) IM PRN (18:25)
[2021-07-22] MEDS ORDERED: OXYTOCIN DRIP 30 UNITS in IV 1 EA IV PRN (18:25)
[2021-07-22] MEDS ORDERED: CARBOPROST TROMETHAMINE 250 MCG/ML AMP IM PRN (18:25)
[2021-07-22] MEDS ORDERED: LACTATED RINGER'S 1000 ML IV STA (18:25)
[2021-07-22] MEDS ORDERED: TRANEXAMIC ACID INJection 1,000 MG in NS 100 ML IV PRN (18:25)
[2021-07-22 18:55] LABS: HEMATOCRIT 37.3 % (36.0-47.0); MEAN CORPUSCULAR HEMOGLOBIN 27.7 pg (27.0-33.0); MEAN CORPUSCULAR HGB CONC 32.2 g/dl (32.0-36.5); MEAN CORPUSCULAR VOLUME 86.1 fl (80.0-96.0); PLATELET COUNT, AUTOMATED 192 10^3/uL (150-450); RED BLOOD COUNT 4.33 10^6/uL (4.00-5.40); WHITE BLOOD COUNT 11.8 10^3/uL (4.0-10.0)
[2021-07-22 20:40] VITALS: BP 136/70
[2021-07-22] MEDS: LR 1,000 ML IV SCH (21:26)
[2021-07-22 22:08] VITALS: BP 129/79
[2021-07-23] VITALS (40 sets, daily range): BP systolic 104–204; BP diastolic 50–113
[2021-07-23] MEDS ORDERED: FENTANYL/ROPIVACAINE/NACL BAG 100 ML EPIDURAL SCH (01:50)
[2021-07-23] MEDS ORDERED: ONDANSETRON 4MG/2ML VIAL IV PRN ×3 (01:50→10:00)
[2021-07-23] MEDS ORDERED: EPIDURAL COMMENT XX SCH (01:50)
[2021-07-23] MEDS ORDERED: NALOXONE INJ 0.4MG/1ML VIAL (J2310 PER 1MG) IV PRN ×3 (01:50→09:12)
[2021-07-23] MEDS ORDERED: LACTATED RINGER'S 1000 ML IV PRN (01:50)
[2021-07-23] MEDS ORDERED: diphenhydrAMINE 50MG/ML VIAL (J1200) IV PRN ×2 (01:50→09:12)
[2021-07-23] MEDS ORDERED: ePHEDrine SULFATE 25 MG/5 ML(5MG/ML) SYRINGE IV PRN (01:50)
[2021-07-23] MEDS ORDERED: EPIDURAL/PCA KEYS XX PRN (01:50)
[2021-07-23] MEDS ORDERED: REFRIGERATOR IV KEYS XX PRN (01:50)
[2021-07-23] MEDS ORDERED: FENTANYL 2MCG/ML ROPIVACAINE 0.2% IN 0.9% NACL 100ML IVBAG As Ordered ONE (01:52)
[2021-07-23] MEDS ORDERED: fentaNYL 100 MCG/2 ML INJECTION (J3010) As Ordered ONE (02:50)
[2021-07-23] MEDS: LR 1,000 ML IV SCH ×3 (04:13→20:28)
[2021-07-23] MEDS ORDERED: BICITRA 30ML SOLN UDC PO ONE (06:00)
[2021-07-23] MEDS ORDERED: ceFAZolin SOD 2 GM in IV 1 EA IV ONE (06:00)
[2021-07-23] MEDS ORDERED: LIDOCAINE 2% W/EPINEPHRINE 20ML VIAL **PRES FREE As Ordered ONE (07:20)
[2021-07-23] MEDS ORDERED: AZITHROMYCIN INJ 500 MG, VIAL MATE ADAPTER 1 EACH in NS 250 ML IV ONE (07:40)
[2021-07-23] MEDS ORDERED: CLINDAMYCIN 900 MG in IV 1 EA IV ONE (07:40)
--- NOTE | 2021-07-23 07:42 | HPE ---
HISTORY AND PHYSICAL DATE OF ADMISSION: 07/22/2021 HISTORY OF PRESENT ILLNESS: Lisha is a 26-year-old female, 2, para 1-0-0-1, with an EDC of 07/21/2021, EGA of 40 weeks with a history of prior section who desires a trial of labor after section. She was scheduled for a repeat section at 40 weeks if she does not go into labor. She presented with complaint of spontaneous rupture of membranes, gross clear fluid and with contractions every 5-6 minutes. At this point, the patient wishes to proceed with a TOLAC. The risks and benefits of the trial of labor were discussed with the patient and this was also done at her record. The patient had a membrane sweep on the 19 of July. She denies any bleeding, good movement. Her record reviewed, essentially unremarkable. As per patient, her prior section was done due to distress. The patient had a section at 37 weeks. The fetus weighed 7 lb, 0.5 oz. lab: Blood type is AB positive, rubella immune, hepatitis negative, HIV negative, GC, Chlamydia negative. One hour sugar testing was within normal limits. Her GBS was negative. PAST MEDICAL HISTORY: Denies. SOCIAL HISTORY: She is a nonsmoker, denies any alcohol or drug. REVIEW OF SYSTEMS: Unremarkable. MEDICATIONS: vitamin. ALLERGIES: No known drug allergies. PHYSICAL EXAMINATION: Normal appearing female in no acute distress. Abdomen: Soft, nontender, nondistended. Extremities: No clubbing, cyanosis or edema. Vaginal exam: Gross rupture of membranes, closed cervix and fetus at minus 3 to minus 4 station in a vertex position. Tracing reviewed, category 1 tracing with contractions every 4-5 minutes. ASSESSMENT: Intrauterine at 40 weeks gestation with a history of prior section which is to have a trial of labor after section. PLAN: The patient will be admitted to labor and delivery, routine labs sent. Pain management discussed. The risks and benefits of TOLAC also discussed. We will continue to monitor. [facility]
[2021-07-23] MEDS ORDERED: AZITHROMYCIN INJ 500MG VIAL (J0456 PER 500MG) As Ordered ONE (07:51)
[2021-07-23] MEDS ORDERED: CLINDAMYCIN 900 MG/50 ML PREMIX BAG As Ordered ONE (07:52)
[2021-07-23] MEDS ORDERED: GENTAMICIN 400 MG in D5W 100 ML IV ONE (08:00)
[2021-07-23] MEDS ORDERED: PHENYLephrine 500MCG 5ML (100MCG/ML) SYRINGE As Ordered ONE (08:21)
[2021-07-23] MEDS ORDERED: ONDANSETRON 4MG/2ML VIAL As Ordered ONE (08:25)
[2021-07-23] MEDS ORDERED: MORPHINE PRES-FREE INJ 10 MG/10 ML VIAL (J2274) As Ordered ONE (08:25)
[2021-07-23] MEDS ORDERED: KETOROLAC 60MG 2ML VIAL As Ordered ONE (08:25)
[2021-07-23] MEDS ORDERED: OXYTOCIN 30 UNITS IN 0.9% NaCl 500ML IV BAG (J2590) As Ordered ONE (08:31)
[2021-07-23] MEDS: PRENATAL VITAMINS CHEWABLE TABLET PO SCH (09:00)
[2021-07-23] MEDS: OMEPRAZOLE 20 MG CAP PO SCH (09:00)
[2021-07-23] MEDS ORDERED: NALBUPHINE HCL 10 MG/ML AMP (J2300) IV PRN (09:12)
[2021-07-23] MEDS ORDERED: METOCLOPRAMIDE INJ 10MG/2ML VIAL (J2765 PER 1) IV PRN ×2 (09:12→10:00)
[2021-07-23] MEDS ORDERED: DOCUSATE SODIUM 100MG CAPSULE PO PRN (09:30)
[2021-07-23] MEDS ORDERED: ACETAMINOPHEN 500 MG TAB PO SCH (09:30)
[2021-07-23] MEDS ORDERED: RHOGAM 300 MCG (1500 IU) INJ (J2790) IM SCH (09:30)
[2021-07-23] MEDS ORDERED: MEASLES,MUMPS,RUBELLA VACCINE INJ (MMR-II) (90707) SC SCH (09:30)
--- NOTE | 2021-07-23 09:38 | ROOPDOC ---
[facility] Report Of Operation Report of Operation DATE OF PROCEDURE: 07/23/2021 PREPROCEDURE DIAGNOSES: Prior section, premature rupture of membranes POSTPROCEDURE DIAGNOSES: Same. PROCEDURE PERFORMED: Repeat low transverse section. SURGEON: Saleem Lomeli MD IMPLEMENTATION SPECIALIST: Sharon Luna CNM ANESTHESIA: Epidural ESTIMATED BLOOD LOSS: 500 IVF: 1200 cc of crystalloid UOP: 50 cc, clear yellow OPERATIVE START TIME: 821 OPERATIVE END TIME: 921 TIME OF DELIVERY: 0832 TIME OF PLACENTA: 0833 COMPLICATIONS: None apparent INDICATION FOR PROCEDURE: Patient is a 26-year-old G 2, P 2001 at 40 weeks and 0 days EGA who presented to labor and delivery with premature rupture of membranes, scheduled for repeat section this morning. FINDINGS: Single liveborn male , weight not recorded at this time. Apgars 9/9 at 1 and 5 minutes respectively SPECIMENS REMOVED: Placenta PROCEDURE NOTE: The patient was brought to the operating suite in stable condition for repeat low transverse section with epidural anesthesia on board and an indwelling catheter in place in the bladder. The patient was placed supine on the operating room table and rolled to her left side with a wedge. The abdomen was prepped and draped in standard fashion for section. After testing with marcus clamp to assure an adequate anesthetic level, the surgery was commenced. With the scalpel, a Pfannenstiel skin incision was made. Dissection was carried down sharply through the subcutaneous tissues to the underlying fascia. The fascia was knicked on either side of the midline and extended laterally using pick ups and curved Dykes scissors. The inferior aspect of the fascial incision was grasped with kolker clamps and elevated off the underlying rectus muscle with a scalpel. This process was then repeated with the lower aspect of the fascial incision. The peritoneum was identified and entered bluntly and was bluntly stretched laterally and cephalad. The vesicouterine junction was i dentified and a bladder flap was created by incising transversely through the peritoneum and vesicouterine fold and then bluntly dissecting the bladder distally. A mobius retractor was placed intra-abdominally. With the scalpel, a low transverse hysterotomy was commenced. The serosa and myometrium were scored with the scalpel. The uterine incision was then extended laterally with the operators fingers. An intrauterine hand was placed and the head of the was brought up out of the pelvis into the uterine incision. With fundal pressure, the was delivered without difficulty. The cord was doubly clamped and transected. The infant was then handed off to the nursery personnel. The placenta was manually removed. The uterine cavity was then curetted with a dry sponge and freed of the remaining membranes. The edges of the uterine incision were grasped with T clamps. The uterine incision was then closed in 2 layers of 0 Vicryl sutures. The pelvis and gutters were irrigated and suctioned and cleared of all blood and clots and amniotic fluid. The uterine incision was reinspected to assure hemostasis. The uterus, tubes and ovaries were inspected and were normal. Once we were satisfied with the hemostasis, attention was turned to closure of the abdominal incision. The fascia was closed in layers using 0-Vicryl sutures. The subcutaneous tissue was closed with 3-0 vicryl suture. The skin was closed with a subcuticular suture of 4-0 monocryl followed by, Steri-Strips and a optifoam dressing. The patient was moved to the recovery room in stable condition with the Poon catheter draining clear urine. Instruments, sponge and needle counts were reported as correct. SALEEM LOMELI MD Jul 23, 2021 09:38
[2021-07-23] MEDS ORDERED: PERCOCET 5MG/325MG TAB PO PRN (10:00)
[2021-07-23] MEDS ORDERED: LR 1,000 ML IV SCH (10:00)
[2021-07-23] MEDS ORDERED: fentaNYL 100 MCG/2 ML INJECTION (J3010) IV PRN (10:00)
[2021-07-23] MEDS ORDERED: SIMETHICONE 80MG CHEW TAB PO PRN (13:00)
[2021-07-23] MEDS: KETOROLAC 30 MG/ML 1ML VIAL IV SCH ×2 (15:04→20:28)
[2021-07-23] MEDS ORDERED: LR 500 ML IV ONE (20:55)
[2021-07-24 02:00] VITALS: BP 112/52
[2021-07-24] MEDS: KETOROLAC 30 MG/ML 1ML VIAL IV SCH (02:46)
[2021-07-24 06:00] VITALS: BP 112/58
[2021-07-24 08:03] LABS: HEMATOCRIT 28.3 % (36.0-47.0); MEAN CORPUSCULAR HEMOGLOBIN 27.7 pg (27.0-33.0); MEAN CORPUSCULAR HGB CONC 31.4 g/dl (32.0-36.5); MEAN CORPUSCULAR VOLUME 88.2 fl (80.0-96.0); PLATELET COUNT, AUTOMATED 134 10^3/uL (150-450); RED BLOOD COUNT 3.21 10^6/uL (4.00-5.40); WHITE BLOOD COUNT 10.7 10^3/uL (4.0-10.0)
[2021-07-24 08:15] LABS: HEMOGLOBIN 8.9 g/dl (12.0-15.5)
[2021-07-24] MEDS: PRENATAL VITAMINS CHEWABLE TABLET PO SCH (09:04)
[2021-07-24] MEDS: OMEPRAZOLE 20 MG CAP PO SCH (09:04)
[2021-07-24 10:00] VITALS: BP 112/55
[2021-07-24] MEDS: IBUPROFEN 600MG TAB PO SCH ×3 (10:45→22:09)
[2021-07-24] MEDS: oxyCODONE 5MG TAB PO PRN (11:46)
[2021-07-24 14:00] VITALS: BP 109/55
--- NOTE | 2021-07-24 15:38 | IPNPDOC ---
Text Note Date of Service The patient was seen on 07/24/21. NOTE Post note S: no complaints O: AVSS NAD Abd: NT, dressing c/d/i ext: NT A/P 32 yo POD#1 repeat section routine post op care VS,Fishbone, I+O VS, Fishbone, I+O Laboratory Tests 07/24/21 07:30 Vital Signs Date Time Temp Pulse Resp B/P (MAP) Pulse Ox O2 Delivery O2 Flow Rate FiO2 07/24/21 14:00 98.9 97 18 109/55 (73) 97 Room Air I&O- Last 24 Hours up to 6 AM 07/24/21 06:00 Intake Total 2795.1 ml Output Total 2500 ml Balance 295.1 ml MUSHTAQ LIANG MD Jul 24, 2021 15:38
[2021-07-24 17:52] VITALS: BP 112/63
[2021-07-24 22:00] VITALS: BP 133/66
[2021-07-25] MEDS: oxyCODONE 5MG TAB PO PRN ×2 (01:38→09:28)
[2021-07-25 02:05] VITALS: BP 123/71
[2021-07-25] MEDS: IBUPROFEN 600MG TAB PO SCH ×2 (04:53→11:43)
[2021-07-25 06:00] VITALS: BP 134/71
[2021-07-25] MEDS: OMEPRAZOLE 20 MG CAP PO SCH (09:28)
[2021-07-25] MEDS: PRENATAL VITAMINS CHEWABLE TABLET PO SCH (09:28)
[2021-07-25 10:07] VITALS: BP 118/57
[2021-07-25] MEDS ORDERED: IBUP-1022 PO (10:52)
[2021-07-25] MEDS ORDERED: OXYC-517 PO (10:52)
--- NOTE | 2021-07-25 12:04 | DSES ---
DISCHARGE SUMMARY DATE OF ADMISSION: 07/22/2021 DATE OF DISCHARGE: 07/25/2021 DISCHARGE DIAGNOSIS: Repeat section at term, premature ruptured of membranes, spontaneous labor, stable condition. SURGEON: Dr. Patti Ruiz. MEAT BUTCHER: Sharon Luna CNM. HISTORY: Lisha is a 26-year-old 2, para 2-0-0-2 now who was admitted to Labor and Delivery with premature rupture of membranes. She was scheduled for a repeat section and underwent her section early that day. Her surgery was uncomplicated. She had an estimated blood loss of 500 mL. Delivered a live male, 7 pounds 15 ounces, 3590 grams. Apgars were 9 and 9. Her postoperative course has been uncomplicated. She has been out of bed for self care, elizabeth care, and infant care. She is tolerating p.o. fluids and a regular diet. Her pain has been well managed by p.o. pain medications, and she does request discharge home. OBJECTIVE: Temperature 97.8, pulse 89, respirations 18, BP 118/57. She is alert and oriented x3. Her breasts are soft and nontender. Abdomen: Fundus firm at umbilicus. Incision with the Optifoam dressing in place. There is no new drainage observed. Her perineum is intact. Lochia rubra scant. Bilateral lower extremities: Scant pitting edema. Preoperative CBC with a hemoglobin of 12, hematocrit 37.3, and platelets 192. Postoperative CBC: Hemoglobin 8.9, hematocrit 28.3, and platelets 134. PLAN: Discharge the patient home. She is to follow up at [facility] for a two week incision check and an eight week appointment. I did review discharge instructions that include breast care, incision care, elizabeth care, pelvic rest, activity and lifting restrictions, and danger signs to report as well as access to care. She and her have had their questions answered. Prescriptions for pain medications have been E-prescribed to her pharmacy for Percocet 5/325 one to two tabs p.o. q.4 hours p.r.n. pain and ibuprofen 800 mg q.8 hours. She and her 's questions have been answered, and they do desire discharge home.
== END 2021-07-25 12:23 | disposition home or self-care (01) | DRG 773 ==
LOC: M LDO 17:50 → M LDI 18:18 → M OBS 07-23 11:33
PROVIDERS: ADMIT Obstetrics & Gynecology; ATTEND Obstetrics & Gynecology
PROC: 10D00Z1 Extraction of Products of Conception, Low, Open Approach (ICD-10-PCS; principal; 2021-07-23 07:30)
DX: O42.02 Full-term premature rupture of membranes, onset of labor within 24 hours of rupture (principal); Z3A.40 40 weeks gestation of pregnancy; O34.211 Maternal care for low transverse scar from previous cesarean delivery; Z37.0 Single live birth

== ENCOUNTER → 2021-08-06 | Outpatient (REF) | payer OTHER ==
[~2021-08-06] MED LIST changes: +IBUP-1022 PO; +OXYC-517 PO
[2021-08-06 14:45] LABS: AMORPHOUS SEDIMENT SMALL (NEGATIVE); APPEARANCE, URINE TURBID (CLEAR); BACTERIA, URINE AUTO NEGATIVE (NEGATIVE); BILIRUBIN, URINE AUTO NEGATIVE (NEGATIVE); BLOOD, URINE BLOOD 1+ (NEGATIVE); COLOR, URINE YELLOW (YELLOW); GLUCOSE, URINE (UA) AUTO NEGATIVE (NEGATIVE); KETONE, URINE AUTO NEGATIVE (NEGATIVE); LEUKOCYTE ESTERASE, URINE AUTO 2+ (NEGATIVE); MUCUS, URINE SMALL (NEGATIVE); NITRITE, URINE AUTO NEGATIVE (NEGATIVE); PROTEIN, URINE AUTO 1+ mg/dL (NEGATIVE); RBC, URINE AUTO 4 /HPF (0-3); SQUAMOUS EPITHELIAL CELL UR AU 0 /HPF (0-6); UROBILINOGEN, URINE AUTO 0.2 mg/dL (0.0-2.0); WBC, URINE AUTO 8 /HPF (0-3)
== END ==
LOC: M SFHCWAGY 13:40
PROVIDERS: ATTEND Obstetrics & Gynecology
DX: R30.0 Dysuria (principal)

== ENCOUNTER → 2022-04-22 | Outpatient (CLI) | payer OTHER ==
[2022-04-22 15:37] LABS: BASO % 0.4 % (0.0-1.0); EOS # 0.1 10^3/uL (0.0-0.5); EOS % 1.1 % (0.0-3.0); HEMATOCRIT 43.6 % (36.0-47.0); HEMOGLOBIN 14.5 g/dl (12.0-15.5); LYMPH # 2.3 10^3/uL (1.5-5.0); LYMPH % 24.1 % (24.0-44.0); MEAN CORPUSCULAR HEMOGLOBIN 29.8 pg (27.0-33.0); MEAN CORPUSCULAR HGB CONC 33.3 g/dl (32.0-36.5); MEAN CORPUSCULAR VOLUME 89.7 fl (80.0-96.0); MONO # 0.5 10^3/uL (0.0-0.8); MONO % 5.4 % (2.0-8.0); NEUTROPHILS # 6.6 10^3/uL (1.5-8.5); NEUTROPHILS % 68.8 % (36.0-66.0); PLATELET COUNT, AUTOMATED 206 10^3/uL (150-450); RED BLOOD COUNT 4.86 10^6/uL (4.00-5.40); WHITE BLOOD COUNT 9.6 10^3/uL (4.0-10.0)
== END ==
LOC: M PLALAB 13:53
PROVIDERS: ATTEND Family Medicine
DX: E55.9 Vitamin D deficiency, unspecified (principal); N89.8 Other specified noninflammatory disorders of vagina; D50.9 Iron deficiency anemia, unspecified

== ENCOUNTER → 2022-07-02 | Outpatient (CLI) | payer OTHER ==
[2022-07-02 13:35] LABS: BASO % 0.5 % (0.0-1.0); EOS # 0.1 10^3/uL (0.0-0.5); EOS % 1.2 % (0.0-3.0); HEMATOCRIT 44.8 % (36.0-47.0); HEMOGLOBIN 14.1 g/dl (12.0-15.5); LYMPH # 2.1 10^3/uL (1.5-5.0); LYMPH % 25.2 % (24.0-44.0); MEAN CORPUSCULAR HEMOGLOBIN 28.8 pg (27.0-33.0); MEAN CORPUSCULAR HGB CONC 31.5 g/dl (32.0-36.5); MEAN CORPUSCULAR VOLUME 91.4 fl (80.0-96.0); MONO # 0.5 10^3/uL (0.0-0.8); MONO % 6.2 % (2.0-8.0); NEUTROPHILS # 5.6 10^3/uL (1.5-8.5); NEUTROPHILS % 66.7 % (36.0-66.0); PLATELET COUNT, AUTOMATED 206 10^3/uL (150-450); WHITE BLOOD COUNT 8.4 10^3/uL (4.0-10.0)
[2022-07-02 14:13] LABS: PERCENT SATURATION 22.9 % (13.2-45.0)
[2022-07-02 14:42] LABS: TOTAL 25(OH) VITAMIN D 40.6 NG/ML (30.0-100.0)
== END ==
LOC: M PLALAB 11:38
PROVIDERS: ATTEND Family Medicine
DX: E55.9 Vitamin D deficiency, unspecified (principal)

== ENCOUNTER → 2022-07-03 | Outpatient (REF) | payer OTHER | LOC: M LAB REF 16:46 | PROVIDERS: ATTEND Family Medicine | DX: N76.0 Acute vaginitis (principal) ==

== ENCOUNTER → 2022-07-08 | Outpatient (CLI) | payer OTHER ==
[2022-07-08 16:01] LABS: ALBUMIN 4.1 GM/DL (3.2-5.2); ALT/SGPT 18 U/L (12-78); BILIRUBIN,TOTAL 0.5 MG/DL (0.2-1.0); BLOOD UREA NITROGEN 15 MG/DL (7-18); CARBON DIOXIDE LEVEL 29 MEQ/L (21-32); CHLORIDE LEVEL 105 MEQ/L (98-107); CREATININE FOR GFR 0.72 MG/DL (0.55-1.30); FREE T4 0.92 NG/DL (0.76-1.46); GLOMERULAR FILTRATION RATE > 60.0 (>60); GLUCOSE, FASTING 86 MG/DL (70-100); POTASSIUM SERUM 4.5 MEQ/L (3.5-5.1); SODIUM LEVEL 138 MEQ/L (136-145); THYROID STIMULATING HORMONE 0.413 uIU/ML (0.358-3.740); TOTAL PROTEIN 7.6 GM/DL (6.4-8.2)
[2022-07-08 16:01] LABS: HEMOGLOBIN A1c 5.1 %
[2022-07-08 17:15] LABS: PROGESTERONE 11.51 NG/ML
[2022-07-08 17:16] LABS: ESTRADIOL 190.1 PG/ML; FOLLICLE STIMULATING HORMONE 2.7 mIU/mL; LUTEINIZING HORMONE 1.2 mIU/mL
== END ==
LOC: M PLALAB 11:47
PROVIDERS: ATTEND Family Medicine
DX: N92.6 Irregular menstruation, unspecified (principal)

== ENCOUNTER → 2022-10-28 | Outpatient (CLI) | payer OTHER ==
[2022-10-28 15:43] LABS: BASO % 0.6 % (0.0-1.0); EOS # 0.1 10^3/uL (0.0-0.5); EOS % 0.8 % (0.0-3.0); HEMATOCRIT 44.8 % (36.0-47.0); HEMOGLOBIN 14.4 g/dl (12.0-15.5); LYMPH # 1.8 10^3/uL (1.5-5.0); MEAN CORPUSCULAR HEMOGLOBIN 29.5 pg (27.0-33.0); MEAN CORPUSCULAR HGB CONC 32.1 g/dl (32.0-36.5); MEAN CORPUSCULAR VOLUME 91.8 fl (80.0-96.0); MONO # 0.4 10^3/uL (0.0-0.8); MONO % 6.2 % (2.0-8.0); NEUTROPHILS # 4.8 10^3/uL (1.5-8.5); NEUTROPHILS % 67.1 % (36.0-66.0); PLATELET COUNT, AUTOMATED 237 10^3/uL (150-450); RED BLOOD COUNT 4.88 10^6/uL (4.00-5.40); WHITE BLOOD COUNT 7.1 10^3/uL (4.0-10.0)
[2022-10-28 16:07] LABS: FERRITIN 87.9 NG/ML (7.3-270.7)
[2022-10-28 16:08] LABS: PERCENT SATURATION 24.2 % (13.2-45.0); TOTAL 25(OH) VITAMIN D 52.1 NG/ML (20.0-100.0)
== END ==
LOC: M PLALAB 13:19
PROVIDERS: ATTEND Family Medicine
DX: E55.9 Vitamin D deficiency, unspecified (principal); D50.9 Iron deficiency anemia, unspecified

== ENCOUNTER → 2022-11-21 | Outpatient (CLI) | payer OTHER | LOC: M PLALAB 09:44 | PROVIDERS: ATTEND Nurse Practitioner Adult Health | DX: M26.621 Arthralgia of right temporomandibular joint (principal) ==

== ENCOUNTER → 2023-01-06 | Outpatient (REF) | payer OTHER | LOC: M LAB REF 17:21 | PROVIDERS: ATTEND Family Medicine | DX: L02.214 Cutaneous abscess of groin (principal) ==

== ENCOUNTER → 2023-03-07 | Outpatient (CLI) | payer OTHER ==
[2023-03-07 13:22] LABS: BASO # 0.1 10^3/uL (0.0-0.2); BASO % 0.8 % (0.0-1.0); EOS # 0.1 10^3/uL (0.0-0.5); EOS % 1.1 % (0.0-3.0); HEMATOCRIT 46.2 % (36.0-47.0); HEMOGLOBIN 14.9 g/dl (12.0-15.5); LYMPH # 1.8 10^3/uL (1.5-5.0); LYMPH % 28.1 % (24.0-44.0); MEAN CORPUSCULAR HEMOGLOBIN 29.6 pg (27.0-33.0); MEAN CORPUSCULAR HGB CONC 32.3 g/dl (32.0-36.5); MEAN CORPUSCULAR VOLUME 91.7 fl (80.0-96.0); MONO # 0.4 10^3/uL (0.0-0.8); MONO % 6.5 % (2.0-8.0); NEUTROPHILS % 63.3 % (36.0-66.0); PLATELET COUNT, AUTOMATED 231 10^3/uL (150-450); RED BLOOD COUNT 5.04 10^6/uL (4.00-5.40); WHITE BLOOD COUNT 6.3 10^3/uL (4.0-10.0)
[2023-03-07 13:29] LABS: IRON (FE) 78 UG/DL (50-170); PERCENT SATURATION 31.2 % (13.2-45.0); TOTAL IRON BINDING CAPACITY 250 UG/DL (250-425)
[2023-03-07 13:30] LABS: ALBUMIN 4.1 G/DL (3.2-5.2); ALKALINE PHOSPHATASE 57 U/L (46-116); ALT/SGPT 14 U/L (7.0-40); AST/SGOT < 8 U/L (<34); BILIRUBIN,TOTAL 0.6 MG/DL (0.3-1.2); BLOOD UREA NITROGEN 13 MG/DL (9-23); CALCIUM LEVEL 10.4 MG/DL (8.5-10.1); CARBON DIOXIDE LEVEL 29 MMOL/L (20-31); CHLORIDE LEVEL 104 MMOL/L (98-107); CREATININE FOR GFR 0.93 MG/DL (0.55-1.30); GLOMERULAR FILTRATION RATE > 60.0 (>60); GLUCOSE, FASTING 89 MG/DL (60-100); POTASSIUM SERUM 4.9 MMOL/L (3.5-5.1); SODIUM LEVEL 140 MMOL/L (136-145); TOTAL PROTEIN 6.8 G/DL (5.7-8.2)
[2023-03-07 13:31] LABS: FERRITIN 79.3 NG/ML (7.3-270.7); FREE T4 0.94 NG/DL (0.89-1.76); THYROID STIMULATING HORMONE 0.427 uIU/ML (0.55-4.78)
[2023-03-07 13:32] LABS: TOTAL 25(OH) VITAMIN D 43.6 NG/ML (20.0-100.0)
== END ==
LOC: M PLALAB 08:35
PROVIDERS: ATTEND Family Medicine
DX: Z13.220 Encounter for screening for lipoid disorders (principal)